=== PATIENT | male | born 1970 | race Caucasian/White ===

== ENCOUNTER 2019-06-22 10:15 | Emergency (ER) | payer MEDICARE, OTHER ==
[2019-06-22] MEDS ORDERED: ASPIRIN 81 MG TABLET, CHEWABLE PO ONE (10:30)
--- NOTE | 2019-06-22 10:33 | ER Document Report ---
ED Medical Screen (RME) - General Chief Complaint: Chest Pain Stated Complaint: CHEST PAIN Time Seen by Provider: 06/22/19 10:27 Mode of Arrival: Ambulatory Information source: Patient Notes: Patient is a 49-year-old male who is new to our local area presenting with complaints of midsternal chest pain that radiates around to the right upper quadrant. He reports the pain has been present for 3 days and is persistent and severe. He reports associated nausea, diaphoresis and chills. His daughter who is present for the interview reports that he is currently being worked up for lung cancer. She also reports he has a history of having 3 strokes in the past. Exam: Tenderness to palpation right upper quadrant. I have greeted and performed a rapid initial assessment of this patient. A comprehensive ED assessment and evaluation of the patient, analysis of test results and completion of the medical decision making process will be conducted by additional ED providers. I have specifically instructed the patient or family members with the patient to immediately return to any nursing staff should anything change in the patient's condition or with their chief complaint. This medical record was dictated with voice recognizing software. There may be grammatical, syntax errors that are unintended. TRAVEL OUTSIDE OF THE [place] IN LAST 30 DAYS: No - Related Data Allergies/Adverse Reactions: iodine Allergy (Verified 06/22/19 10:21) Physical Exam - Vital signs Vitals: Temp Pulse Resp BP Pulse Ox 98.7 F 92 20 149/91 H 98 06/22/19 10:24 06/22/19 10:24 06/22/19 10:24 06/22/19 10:24 06/22/19 10:24 Course - Vital Signs Vital signs: Temp Pulse Resp BP Pulse Ox 98.7 F 92 20 149/91 H 98 06/22/19 10:24 06/22/19 10:24 06/22/19 10:24 06/22/19 10:24 06/22/19 10:24
--- NOTE | 2019-06-22 11:35 | RADIOLOGY REPORT (SQ) ---
EXAM DESCRIPTION: CHEST 2 VIEWS COMPLETED DATE/TIME: 06/22/2019 11:21 am REASON FOR STUDY: chest pain COMPARISON: None. EXAM PARAMETERS: NUMBER OF VIEWS: two views TECHNIQUE: Digital Frontal and Lateral radiographic views of the chest acquired. RADIATION DOSE: NA LIMITATIONS: none FINDINGS: LUNGS AND PLEURA: No opacities, masses or pneumothorax. No pleural effusion. MEDIASTINUM AND HILAR STRUCTURES: No masses or contour abnormalities. HEART AND VASCULAR STRUCTURES: Heart normal size. No evidence for failure. BONES: No acute findings. HARDWARE: None in the chest. OTHER: No other significant finding. IMPRESSION: NO ACUTE RADIOGRAPHIC FINDING IN THE CHEST. TECHNICAL DOCUMENTATION: JOB ID: [id number] [employer]- All Rights Reserved Reading location - IP/workstation name: [email or web address]
[2019-06-22 11:40] LABS: ABSOLUTE BASOPHILS # (AUTO) 0.1 10^3/uL (0.0-0.2); ABSOLUTE EOSINOPHILS # (AUTO) 0.1 10^3/uL (0.0-0.6); ABSOLUTE LYMPHOCYTES (AUTO) 5.1 10^3/uL (0.5-4.7); ABSOLUTE MONOCYTES (AUTO) 0.9 10^3/uL (0.1-1.4); ABSOLUTE NEUT (AUTO) 7.3 10^3/uL (1.7-8.2); BASOPHILS % (AUTO) 0.6 % (0-2); EOSINOPHILS % (AUTO) 1.1 % (0-6); HEMOGLOBIN 11.5 g/dL (13.5-17.0); LYMPHOCYTES % (AUTO) 37.6 % (13-45); MEAN CORPUSCULAR HGB CONC 31.9 g/dL (32.0-36.0); MONOCYTES % (AUTO) 6.5 % (3-13); PLATELET COUNT 367 10^3/uL (150-450); RED BLOOD COUNT 6.02 10^6/uL (4.35-5.55); RED CELL DISTRIBUTION WIDTH 15.6 % (11.5-14.0); SEGMENTED NEUTROPHILS % (AUTO) 54.2 % (42-78); TOTAL CELLS COUNTED % (AUTO) 100 %; WHITE BLOOD COUNT 13.5 10^3/uL (4.0-10.5)
[2019-06-22 11:49] LABS: MEAN CORPUSCULAR VOLUME 60 fl (80-97)
[2019-06-22 11:52] LABS: ALBUMIN 5.1 g/dL (3.5-5.0); ALKALINE PHOSPHATASE 79 U/L (38-126); ANION GAP 13 (5-19); ASPARTATE AMINO TRANSFERASE 29 U/L (17-59); BILIRUBIN,DIRECT 0.4 mg/dL (0.0-0.4); BILIRUBIN,TOTAL 0.7 mg/dL (0.2-1.3); BLOOD UREA NITROGEN 11 mg/dL (7-20); CALCIUM 9.8 mg/dL (8.4-10.2); CARBON DIOXIDE 25 mmol/L (22-30); CHLORIDE 103 mmol/L (98-107); GLUCOSE 88 mg/dL (75-110); POTASSIUM 4.3 mmol/L (3.6-5.0); TOTAL PROTEIN 8.4 g/dL (6.3-8.2)
--- NOTE | 2019-06-22 11:59 | ER Document Report ---
ED General - General Chief Complaint: Chest Pain Stated Complaint: CHEST PAIN Time Seen by Provider: 06/22/19 10:27 Mode of Arrival: Ambulatory TRAVEL OUTSIDE OF THE [place] IN LAST 30 DAYS: No - HPI Notes: Patient is 3 days continuous sharp dull epigastric pain that radiates to his right upper quadrant. He has been having nausea but no vomiting. He has been having normal bowel movements no black or red stools. Abdominal pain is not in his lower abdomen he has no dysuria or chest pain. - Related Data Allergies/Adverse Reactions: iodine Allergy (Verified 06/22/19 10:21) Past Medical History - General Information source: Patient - Social History Smoking Status: Current Every Day Smoker Family History: Reviewed & Not Pertinent Patient has suicidal ideation: No Patient has homicidal ideation: No Review of Systems - Review of Systems Constitutional: No symptoms reported EENT: No symptoms reported Cardiovascular: No symptoms reported Respiratory: No symptoms reported Gastrointestinal: See HPI Genitourinary: No symptoms reported Male Genitourinary: No symptoms reported Musculoskeletal: No symptoms reported Skin: No symptoms reported Hematologic/Lymphatic: No symptoms reported Neurological/Psychological: No symptoms reported Physical Exam - Vital signs Vitals: Temp Pulse Resp BP Pulse Ox 98.7 F 92 20 149/91 H 98 06/22/19 10:24 06/22/19 10:24 06/22/19 10:24 06/22/19 10:24 06/22/19 10:24 - General General appearance: Appears well, Alert - HEENT Head: Normocephalic, Atraumatic Eyes: Normal Conjunctiva: Normal - Respiratory Respiratory status: No respiratory distress Chest status: Nontender Breath sounds: Normal Chest palpation: Normal - Cardiovascular Rhythm: Regular Heart sounds: Normal auscultation Murmur: No - Abdominal Inspection: Normal Distension: No distension Bowel sounds: Normal Tenderness: Other - Mild tenderness to palpation of epigastric and right upper quadrant - Neurological Neuro grossly intact: Yes Cognition: Normal Orientation: AAOx4 Course - Re-evaluation Re-evalutation: 06/22/19 12:51 Patient has normal right upper quadrant ultrasound as well as chest x-ray. His labs are within normal limits are nonsignificant with only mild leukocytosis and no fever. His symptoms been going on for over 3 days and been continuous with a negative troponin and no concerning EKG findings. We will treat at this time is gastritis as he states he has been having a sour taste in his throat. Will provide Pepcid and Maalox at this time outpatient. Strict return precautions were provided the event and develop any fevers or worsening symptoms to return to the emergency department. - Vital Signs Vital signs: Temp Pulse Resp BP Pulse Ox 97.6 F 92 15 151/97 H 100 06/22/19 13:00 06/22/19 10:24 06/22/19 13:00 06/22/19 13:00 06/22/19 13:00 - Laboratory Result Diagrams: 06/22/19 11:10 06/22/19 11:10 Laboratory results interpreted by me: 06/22/19 06/22/19 11:10 11:10 WBC 13.5 H RBC 6.02 H Hgb 11.5 L Hct 36.0 L MCV 60 L MCH 19.0 L MCHC 31.9 L RDW 15.6 H Absolute Lymphs (auto) 5.1 H Total Protein 8.4 H Albumin 5.1 H - Diagnostic Test Radiology reviewed: Reports reviewed - EKG Interpretation by Me EKG shows normal: Sinus rhythm Rate: Normal Rhythm: NSR - Normal axis, no concerning ST depressions or elevations Discharge - Discharge Clinical Impression: Upper abdominal pain Condition: Good Disposition: HOME, SELF-CARE Instructions: Abdominal Pain ([facility]), Antacid Therapy ([facility]), Antinausea Medication ([facility]) Additional Instructions: Return to the emergency department if any development of fevers or worsening symptoms. Prescriptions: Bismuth Subsalicylate [Maalox] 1 dose PO DAILY PRN #1 bottle PRN Reason: Ranitidine HCl [Zantac] 150 mg PO BID #60 tablet Ondansetron [Zofran Odt 4 mg Tablet] 1 - 2 tab PO ASDIR PRN #10 tab.rapdis PRN Reason: For Nausea/Vomiting
[2019-06-22 12:03] LABS: ANISOCYTOSIS SLIGHT; HYPOCHROMASIA 2+; OVALOCYTES SLIGHT; POIKILOCYTOSIS SLIGHT; POLYCHROMASIA 1+; TEAR DROP CELLS SLIGHT
[2019-06-22 12:04] LABS: PLATELET COMMENT ADEQUATE
--- NOTE | 2019-06-22 12:48 | RADIOLOGY REPORT (SQ) ---
EXAM DESCRIPTION: U/S ABDOMEN LIMITED W/O DOP COMPLETED DATE/TIME: 06/22/2019 12:35 pm REASON FOR STUDY: chest pain/RUQ pain/nausea COMPARISON: None. TECHNIQUE: Dynamic and static grayscale images acquired of the abdomen and recorded on PACS. Kenneyo contreras selected color Doppler and spectral images recorded. LIMITATIONS: None. FINDINGS: PANCREAS: Not visualized. LIVER: Normal size Echo texture normal. No focal masses. LIVER VASCULATURE: Normal directional flow of the main portal vein and hepatic veins. GALLBLADDER: No stones. Normal wall thickness. No pericholecystic fluid. ULTRASOUND-DETECTED SEWELL'S SIGN: Negative. INTRAHEPATIC DUCTS AND COMMON DUCT: CBD and intrahepatic ducts normal caliber. No filling defects. AORTA: No aneurysm. RIGHT KIDNEY: The right kidney measures 11.5 cm in length. Normal echogenicity. No solid or susp icious masses. No hydronephrosis. No calcifications. PERITONEAL AND RIGHT PLEURAL SPACE: No ascites or effusions. OTHER: No other significant findings. IMPRESSION: Nonvisualization of the pancreas secondary to overlying bowel gas otherwise negative rig ht upper quadrant ultrasound. TECHNICAL DOCUMENTATION: JOB ID: [id number] [employer]- All Rights Reserved Reading location - IP/workstation name: [email or web address]
[2019-06-22] MEDS ORDERED: MAG HYDROX/AL HYDROX/SIMETH SUSP 30 ML UDCUP PO ONE (12:50)
[2019-06-22] MEDS ORDERED: METOCLOPRAMIDE HCL ORAL SOLN 10 MG/10 ML UDCUP PO ONE (12:50)
[2019-06-22] MEDS ORDERED: LIDOCAINE 2% VISCOUS SOLN 20 ML UDCUP PO ONE (12:50)
[2019-06-22 13:02] VITALS: BP 151/97
--- NOTE | 2019-06-22 13:55 | EKG REPORT ---
SEVERITY:- BORDERLINE ECG - SINUS RHYTHM CONSIDER RIGHT VENTRICULAR HYPERTROPHY : Confirmed by: Marques Martinez MD 22-Jun-2019 13:55:30
[2019-06-26 16:41] LABS: PATH REVIEW PATHOLOGIST REVIEWED
== END 2019-06-22 13:29 | disposition home or self-care (01) ==
LOC: ER 10:15
DX: R10.11 Right upper quadrant pain (principal); R11.0 Nausea; F17.200 Nicotine dependence, unspecified, uncomplicated
CPT/HCPCS: 93005; 99285; 36415; 83690; 85025; 80053; 84484; 71046; 76705; 93010; A9270 ×2; J3490

== ENCOUNTER → 2019-06-27 | Outpatient (CLI) | payer MEDICARE ==
--- NOTE | 2019-06-27 15:45 | RADIOLOGY REPORT (SQ) ---
EXAM DESCRIPTION: CT CHEST WITHOUT COMPLETED DATE/TIME: 06/27/2019 3:30 pm REASON FOR STUDY: R91.8 OTHER NONSPECIFIC ABNORMAL FINDING OF LUNG FIELD R91.8 OTHER NONSPECIFIC AB NORMAL FINDING OF LUNG FIELD COMPARISON: None. TECHNIQUE: CT scan performed of the chest without intravenous contrast. Images reviewed with lung, soft tissue and bone windows. Reconstructed coronal and sagittal MPR images reviewed. All images st ored on PACS. All CT scanners at this facility use dose modulation, iterative reconstruction, and/or weight based d osing when appropriate to reduce radiation dose to as low as reasonably achievable (ALARA). [facility]: Dose Right [facility]: CareDose [facility]: Dose Right [facility]: Teradose 4D [facility]: [email or web address] RADIATION DOSE: CT Rad equipment meets quality standard of care and radiation dose reduction techniq ues were employed. CTDIvol: 12.4 mGy. DLP: 519 mGy-cm. mGy. LIMITATIONS: No technical limitations. FINDINGS: Chest x-ray dated 06/22/2019 LUNGS AND PLEURA: No masses, infiltrates, or pneumothorax. No pleural effusions or pleural calcifica tions. HILAR AND MEDIASTINAL STRUCTURES: No identified masses or abnormal nodes. No obvious aneurysm. HEART AND VASCULAR STRUCTURES: No aneurysm. No pericardial effusion. UPPER ABDOMEN: No significant findings. Limited exam. THYROID AND OTHER SOFT TISSUES: No masses. No adenopathy. BONES: No significant finding. HARDWARE: None in the chest. OTHER: No other significant findings. IMPRESSION: NO SIGNIFICANT FINDING ON NON-CONTRASTED CHEST CT. TECHNICAL DOCUMENTATION: JOB ID: [id number] Quality ID # [id number]: Final reports with documentation of one or more dose reduction techniques (e.g., Au tomated exposure control, adjustment of the mA and/or kV according to patient size, use of iterative reconstruction technique) 2010 [employer]- All Rights Reserved Reading location - IP/workstation name: [email or web address]
== END ==
LOC: RAD 14:43
PROVIDERS: ATTEND Family Medicine
DX: R91.8 Other nonspecific abnormal finding of lung field (principal)
CPT/HCPCS: 71250

== ENCOUNTER → 2019-07-28 | Emergency (ER) | payer MEDICARE ==
[~2019-07-28] MED LIST: ALTEPLASE INJ 100 MG VIAL IV ONE; ALTEPLASE INJ 100 MG VIAL ONE; MORPHINE SULFATE 10 MG/ML INJ IV ONE
--- NOTE | 2019-07-28 22:49 | ER Document Report ---
ED Neuro Symptoms/Deficit - General Chief Complaint: Chest Pain Stated Complaint: CHEST PAIN Time Seen by Provider: 07/28/19 22:45 Primary Care Provider: RUTH ANN GHOSH DO [Primary Care Provider] - Follow up as needed TRAVEL OUTSIDE OF THE [place] IN LAST 30 DAYS: No - HPI Notes: This is a 49-year-old gentleman with a history of hypertension, lung cancer who presents today with a complaint of right-sided weakness and paresthesias. Patient was last seen well about 30 minutes prior to presentation. He was on his way to go to the postop to go to [place] when he started having chest pain, speech difficulty and right-sided weakness. He denies any trauma. EMS then brought him to the emergency department. He denies any recent illness. She was given aspirin and nitroglycerin per EMS for chest pain. He also comes of generalized body aches. - Related Data Allergies/Adverse Reactions: iodine Allergy (Verified 06/22/19 10:21) Past Medical History - Social History Smoking Status: Current Every Day Smoker Frequency of alcohol use: None Drug Abuse: None Family History: Reviewed & Not Pertinent Review of Systems - Review of Systems Cardiovascular: Chest pain. denies: Palpitations, Heart racing Gastrointestinal: denies: Abdominal pain Neurological/Psychological: Weakness, Speech impairment, Numbness. denies: Headaches, Suicidal ideation -: Yes All other systems reviewed and negative Physical Exam - Vital signs Vitals: Pulse Resp BP Pulse Ox 99 20 148/96 H 95 07/28/19 22:46 07/28/19 22:46 07/28/19 22:46 07/28/19 22:46 - HEENT Head: Normocephalic, Atraumatic Eyes: Normal Pupils: PERRL - Respiratory Respiratory status: No respiratory distress Chest status: Nontender Breath sounds: Normal Chest palpation: Normal - Cardiovascular Rhythm: Regular Heart sounds: Normal auscultation Murmur: No - Abdominal Inspection: Normal Distension: No distension Bowel sounds: Normal Tenderness: Nontender Organomegaly: No organomegaly - Neurological Neuro grossly intact: Yes Cognition: Normal Orientation: AAOx4 Nigel Coma Scale Eye Opening: Spontaneous Nigel Coma Scale Verbal: Oriented [place] Coma Scale Motor: Obeys Commands Nigel Coma Scale Total: 15 Speech: Normal, Expressive aphasia Cranial nerves: Sensory deficit Motor strength normal: LUE, LLE Sensory: Normal Notes: Patient has subjective decreased sensation on the right side. He has right lower extremity weakness. He is unable to lift his right leg. Decreased strength also in the right upper extremity. NIH stroke score was 9. Course - Re-evaluation Re-evalutation: 07/28/19 22:53 Clinical picture is concerning for acute CVA. Code stroke called immediately. Call placed to [facility] for neurology consult. Awaiting callback. 07/28/19 23:22 Patient's care discussed with neurology PA at [facility], Magno Britton. TPA recommended since patient is within the TPA window. Patient accepted for transfer. Admitting attending is Dr. James Tam went and discussed risks and benefits of TPA with patient. He understands risk of bleeding. He understands benefits of potential resolution of symptoms. Patient has no contraindications to TPA at this time. TPA ordered. Patient will be transferred to [facility]. 07/28/19 23:23 EKG shows normal sinus rhythm at 99 bpm. Right ventricular hypertrophy. No acute injury pattern. 07/28/19 23:24 07/28/19 23:47 Patient is doing well. He was in the first pain. Has pain all over. No changes in neuro exam. 07/29/19 00:16 Patient reevaluated. No change in his neuro exam. He is hemodynamically stable. Transport is here. He is stable for transfer. - Vital Signs Vital signs: Temp Pulse Resp BP Pulse Ox 98.4 F 96 18 134/80 H 96 07/28/19 23:10 07/29/19 00:02 07/29/19 00:02 07/29/19 00:02 07/29/19 00:02 - Laboratory Result Diagrams: 07/28/19 22:45 07/28/19 22:45 Laboratory results interpreted by me: 07/28/19 22:45 WBC 11.3 H RBC 6.12 H Hgb 11.9 L Hct 37.5 L MCV 61 L MCH 19.5 L MCHC 31.8 L RDW 17.4 H Critical Care Note - Critical Care Note Total time excluding time spent on procedures (mins): 90 Comments: Critical care time includes time for management of acute CVA with TPA administration. Discharge - Discharge Clinical Impression: Acute CVA (cerebrovascular accident) Condition: Stable Disposition: Tertiary-Other Referrals: RUTH ANN GHOSH, [Primary Care Provider] - Follow up as needed ED NIH Stroke Scale - NIH Stroke Scale *: 1. NIH scale should be completed with appropriate accompanying assessment tools. *: 2. The NIH should reflect what the patient is capable of doing and should not be coached by the clinician. 1a. Level of Consciousness: 0=Alert;keenly responsive -: 1=Drowsy -: 2=Obtunded -: 3=Coma/unresponsive or reflex to noxious stimuli. 1a. Responses: 0 1b. Orientation Questions: a. What month is it? -: b. How old are you? -: 0=Answers both questions correctly. -: 1=Answers one question correctly or patient is intubated or has orotracheal trauma. -: 2=Answers neither question correctly. 1b. Responses: 1 1c. Response to commands: a. Open and close eyes? -: b. Mobile Sales Assistant and release hand? -: Credit is given despite weakness. Demonstration of task is permitted. Substitute command if hands cannot be used. -: 0=Performs both tasks correctly -: 1=Performs one task correctly -: 2=Performs neither task correctly 1c. Responses: 0 2. Gaze: Establish eye contact and instruct patient to "Follow my finger" -: 0=Normal -: 1=Partial gaze palsy. Gaze is abnormal in one or both eyes, but where forced deviation or total gaze paresis is not present. -: 2=Forced deviation or total gaze paresis. 2. Responses: 0 3. Visual Last: Sees fingers in all four quadrants. -: 0=No visual loss. -: 1=Partial hemianopsia. -: 2=Complete hemianopsia. -: 3=Bilateral hemianopsia (including Cortical blindness) 3. Responses: 0 4. Facial Movement: Instruct patient to: -: a. Show me your teeth -: b. Raise your eyebrows -: c. Close your eyes -: d. Smile -: 0=Normal symmetrical movement -: 1=Minor paralysis (flattened nasolabial fold, asymmetry on smiling). -: 2=Partial paralysis (total or near total paralysis of lower face). -: 3=Complete paralysis of upper and lower face 4. Responses: 1 5. Motor functions (left arm): Alternate sides and extend each arm with palms down (90 degrees if sitting or 45 degrees for supine). -: 0=No drift;limb holds for full 10 seconds. -: 1=Drift; limb holds but drifts down before full 10 seconds, but does not hit bed. -: 2=Some effort against gravity; limb cannot get to or maintain position. -: 3=No effort against gravity; limb falls. -: 4=No movement. -: UN=Amputation, joint fusion, explain in comments. 5. Responses (left arm): 0 5. Motor Functions (right arm): Alternate sides and extend each arm with palms down (90 degrees if sitting or 45 degrees for supine). -: 0=No drift;limb holds for full 10 seconds. -: 1=Drift; limb holds but drifts down before full 10 seconds, but does not hit bed. -: 2=Some effort against gravity; limb cannot get to or maintain position. -: 3=No effort against gravity; limb falls. -: 4=No movement. -: UN=Amputation, joint fusion, explain in comments. 5. Responses (right arm): 2 6. Motor Functions (left leg): With patient lying supine, alternate sides and extend each leg (30 degrees always while supine). -: 0=No drift, leg holds position for full 5 seconds -: 1=Drift; leg falls before full 5 seconds but does not hit bed. -: 2=Some effort against gravity, leg falls to bed but some effort against gravity. -: 3=No effort against gravity, leg falls to bed immediately. -: 4=No movement. -: UN=Amputation, joint fusion; explain in comments. 6. Responses (left leg): 0 6. Motor Functions (right leg): With patient lying supine, alternate sides and extend each leg (30 degrees always while supine). -: 0=No drift, leg holds position for full 5 seconds -: 1=Drift; leg falls before full 5 seconds but does not hit bed. -: 2=Some effort against gravity, leg falls to bed but some effort against gravity. -: 3=No effort against gravity, leg falls to bed immediately. -: 4=No movement. -: UN=Amputation, joint fusion; explain in comments. 6. Responses (right leg): 3 7. Limb Ataxia: With eyes open instruct patient to: -: a. "Touch your finger to your nose". -: b. "Touch your heel to your victoria" -: 0=Absent -: 1=Present in one limb. -: 2=Present in two limbs. -: UN=Amputation or joint fusion; explain in comments. 7. Responses: 0 8. Sensory: Test sensation using pinprick or noxious stimuli. Test as many body parts as possible. -: 0=Normal;no sensory loss -: 1=Mile to moderate sensory loss (patient feels pin prick but is less sharp on affected side). -: 2=Severe or total sensory loss. 8. Responses: 1 9. Best Language: Instruct patient to: -: a. "Describe what you see in this picture." -: b. "Name the items in this picture." -: c. "Read these sentences." -: 0=No aphasia, normal -: 1=Mild to moderate aphasia. -: 2=Severe aphasia -: 3=Mute, global aphasia, no usable speech or auditory comprehension. 9. Responses: 1 10. Articulation, Dysarthia: Instruct patient to: -: "Read these words" or "Repeat these words" -: 0=Normal -: 1=Mild to moderate; patient may slur some words but can be understood without difficulty. -: 2=Severe; patients speech so slurred as to be unintelligible in the absence of dysphasia. -: UN=Intubated or other physical barrier, explain in comments. 10. Responses: 0 11. Extinction or inattention: 0=No abnormality -: 1= Visual, tactile, auditory, spatial, or personal inattention or extinction to bilateral simulation in one or the sensory modalities. -: 2=Profound donny-inattention or donny-inattention to more than one modality; does not recognize own hand. 11. Responses: 0 Total Score: 9 ED Alteplase Inc/Exc Criteria - Inclusion Criteria: 1: Patient presented to ED within 3 hours of acute ischemic stroke symptom onset? -: Yes 2: Did baseline CT exclude intracranial hemorrhage and/or other risk factors? -: Yes 3: Is the age of the patient 18 years of age or greater? -: Yes : If any of the above questions are answered "NO" then stop, patient is not a candidate for Alteplase, : If all of the above questions are answered "YES" then continue with Exclusion Criteria. - Exclusion Criteria: 1: Is there evidence of intracranial hemorrhage on baseline CT? -: No 2: Is there suspicion of subarachnoid hemorrhage (even if CT negative)? -: No 3: Is there a history of serious head trauma, recent previous stroke or AL within 3 months? -: No 4: Does the patient have a clinical presentation consistent with AL or post-AL pericarditis? -: No 5: Is there history of intracranial hemorrhage? -: No 6: On repeated measurement is Systolic BP greater than 185mmHg or Diastolic BP greater that 110 mmHg and is aggressive treatment needed to reduce blood pressure to these limits (e.g. constant infusion of an anti-hypertensive)? -: No 7: Did the patient awake with stroke symptoms? -: No 8: Has the patient had a lumbar puncture or an arterial puncture at a non- compressile site within 7 days? -: No 9: With in the last 14 days did the patient have surgery or major trauma? -: No 10: Is the patient or less than 2 weeks? -: No 11: Was there any active bleeding or acute trauma? -: No 12: Does the patient have intracranial neoplasm, arteriovenous malformation or aneurysm? -: No 13: Does the patient have abnormal glucose (less than 50 or greater than 400mg/dl)? Record glucose in Comment. -: No 14: Patient has rapidly improving symptoms at the time Alteplase is to be Administered. -: No 15: Does the patient have any risks for bleeding, including but not limited to: a.: Current use of Coumadin with PT greater than 15 seconds or INR greater than 1.7. b.: Current use of Pradaxa (Dabigatran). c.: Heparin administereed within the past 48 hours and PTT elevated. d.: Platelet count less than 100,000/mm. e.: Major surgery or serious trauma within 14 days. f.: Gastrointestinal or gynecological urinary bleeding within 14 days. g.: Myocardial Infarction (AL) within 3 months. -: No : If the answer to any of the above questions is "YES" then stop, the patient is not a candidate for Alteplase. : If the answer to all of the above questions is "NO" then the patient may be eligible for the Administration of Alteplase. : If the patient is noted to have seizure activity at onset of Stroke symptoms; Consult Neurologist for further evaluation. - The patient is: -: Included and is eligible to receive Alteplase. *Initiate bed placement at higher level of care* --: Yes Reviewed risks & benefits of thrombolytic therapy: I have reviewed the risks and benefits of thrombolytic therapy with the patient and/or his/her family. Yes -: Excluded and not eligible to receive Alteplase for the above exclusions. -: Excluded and not eligible to receive Alteplase for other reasons (specify in comments): - Diagnosis of TIA: -: Patient presented with transient symptoms that are now resolved and no other neurologic findings are currently present. List symptoms in comments. -: Patient is NOT a candidate for tPA. -: ____(put name in comment) has been consulted for admission and continued evaluation of risk factor assessment.
[2019-07-28 22:59] LABS: ABSOLUTE BASOPHILS # (AUTO) 0.1 10^3/uL (0.0-0.2); ABSOLUTE EOSINOPHILS # (AUTO) 0.1 10^3/uL (0.0-0.6); ABSOLUTE LYMPHOCYTES (AUTO) 3.7 10^3/uL (0.5-4.7); ABSOLUTE MONOCYTES (AUTO) 0.6 10^3/uL (0.1-1.4); ABSOLUTE NEUT (AUTO) 6.8 10^3/uL (1.7-8.2); BASOPHILS % (AUTO) 0.9 % (0-2); EOSINOPHILS % (AUTO) 0.9 % (0-6); HEMATOCRIT 37.5 % (37.9-51.0); HEMOGLOBIN 11.9 g/dL (13.5-17.0); LYMPHOCYTES % (AUTO) 32.9 % (13-45); MEAN CORPUSCULAR HEMOGLOBIN 19.5 pg (27.0-33.4); MEAN CORPUSCULAR HGB CONC 31.8 g/dL (32.0-36.0); MONOCYTES % (AUTO) 5.1 % (3-13); PLATELET COUNT 347 10^3/uL (150-450); RED BLOOD COUNT 6.12 10^6/uL (4.35-5.55); RED CELL DISTRIBUTION WIDTH 17.4 % (11.5-14.0); SEGMENTED NEUTROPHILS % (AUTO) 60.2 % (42-78); TOTAL CELLS COUNTED % (AUTO) 100 %; WHITE BLOOD COUNT 11.3 10^3/uL (4.0-10.5)
[2019-07-28 23:04] LABS: INTERNATIONAL RATION (INR) 1.04
[2019-07-28 23:05] LABS: PARTIAL THROMBOPLASTIN TIME 26.5 SEC (23.5-35.8)
--- NOTE | 2019-07-28 23:05 | RADIOLOGY REPORT (SQ) ---
EXAM DESCRIPTION: CT HEAD WITHOUT IV CONTRAST COMPLETED DATE/TME: 07/28/2019 22:46 CLINICAL HISTORY: 49 years, Male, cva COMPARISON: None. TECHNIQUE: Images stored on PACS. All CT scanners at this facility use dose modulation, iterative reconstruction, and/or weight based dosing when appropriate to reduce radiation dose to as low as reasonably achievable (ALARA). EXAM DESCRIPTION: CLINICAL HISTORY: cva COMPARISON: None Available TECHNIQUE: Contiguous axial CT images of the head were obtained. Coronal and sagittal reconstructions were created from the axial data. This exam was performed according to our departmental dose-optimization program, which includes automated exposure control, adjustment of the mA and/or kV according to patient size and/or use of iterative reconstruction technique. FINDINGS: There is no evidence of acute mass, mass effect, midline shift or hemorrhage. The ventricles and extra-axial CSF spaces are unremarkable. The brain parenchyma appears normal for the patient's age. No acute abnormalities of the bones is seen. IMPRESSION: No acute intracranial abnormality.
[2019-07-28 23:08] LABS: PROTHROMBIN TIME 13.6 SEC (11.4-15.4)
[2019-07-28 23:18] LABS: ANISOCYTOSIS 1+; HYPOCHROMASIA SLIGHT; TARGET CELLS SLIGHT
[2019-07-28 23:19] LABS: ALBUMIN 4.6 g/dL (3.5-5.0); ALKALINE PHOSPHATASE 85 U/L (38-126); ANION GAP 12 (5-19); ASPARTATE AMINO TRANSFERASE 27 U/L (17-59); BILIRUBIN,DIRECT 0.1 mg/dL (0.0-0.4); BILIRUBIN,TOTAL 0.4 mg/dL (0.2-1.3); BLOOD UREA NITROGEN 9 mg/dL (7-20); CALCIUM 10.1 mg/dL (8.4-10.2); CARBON DIOXIDE 27 mmol/L (22-30); CHLORIDE 102 mmol/L (98-107); CREATINE KINASE 66 U/L (55-170); GLUCOSE 95 mg/dL (75-110); PLATELET COMMENT ADEQUATE; POTASSIUM 3.9 mmol/L (3.6-5.0); TOTAL PROTEIN 7.8 g/dL (6.3-8.2)
[2019-07-28 23:21] LABS: MEAN CORPUSCULAR VOLUME 61 fl (80-97)
[2019-07-28 23:43] LABS: CREATINE KINASE MB < 0.22 ng/mL (<4.55); TROPONIN I < 0.012 ng/mL
--- NOTE | 2019-07-28 23:47 | RADIOLOGY REPORT (SQ) ---
EXAM DESCRIPTION: XR CHEST 1 VIEW COMPLETED DATE/TME: 07/28/2019 22:46 CLINICAL HISTORY: 49 years, Male, cva COMPARISON: 06/22/2019 chest NUMBER OF VIEWS: 1 TECHNIQUE: Portable chest LIMITATIONS: None. FINDINGS: The heart size is normal. Osteopenia. Lungs clear. No pneumothorax IMPRESSION: No acute cardiopulmonary process copyright 2010 [employer]- All Rights Reserved
[2019-07-29 00:26] VITALS: BP 133/93
--- NOTE | 2019-07-29 08:52 | EKG REPORT ---
SEVERITY:- ABNORMAL ECG - SINUS TACHYCARDIA PROBABLE RIGHT VENTRICULAR HYPERTROPHY : Confirmed by: Fatmata Lopez MD 29-Jul-2019 08:51:24
[2019-07-30 12:53] LABS: PATH REVIEW PATHOLOGIST REVIEWED
== END | disposition short-term general hospital (02) ==
LOC: ER 22:29
DX: I63.9 Cerebral infarction, unspecified (principal); G81.91 Hemiplegia, unspecified affecting right dominant side; R47.9 Unspecified speech disturbances; R20.0 Anesthesia of skin; R29.709 NIHSS score 9; I11.9 Hypertensive heart disease without heart failure; R07.9 Chest pain, unspecified; F17.200 Nicotine dependence, unspecified, uncomplicated; Z85.118 Personal history of other malignant neoplasm of bronchus and lung
CPT/HCPCS: 93005; 99291; 99292; 96374; 96375; 36415; 82553; 82962; 82550; 85025; 85610; 85730; 80053; 84484; 71045; 70450; 93010; J2270; J2997

== ENCOUNTER 2020-03-05 23:22 | Emergency (ER) | payer MEDICARE, MEDICAID ==
[2020-03-06] MEDS ORDERED: LORAZEPAM INJ 2 MG/1 ML VIAL IV ONE (00:15)
[2020-03-06] MEDS ORDERED: LEVETIRACETAM 1000 MG/NACL-ISO 1,000 MG/100 ML RTUPB IV ONE (00:19)
--- NOTE | 2020-03-06 00:19 | ER Document Report ---
ED Dizziness/Weakness - General Chief Complaint: General Weakness Stated Complaint: WEAKNESS Time Seen by Provider: 03/05/20 23:32 Primary Care Provider: RUTH ANN GHOSH DO [Primary Care Provider] - Follow up as needed Mode of Arrival: Medic Information source: Patient, Emergency Med Personnel Notes: Patient is a 42-year-old male presenting to the emergency department today with multiple complaints. Patient initially told EMS and the nursing staff that he has had generalized weakness for the last few days as well as shortness of breath that started this afternoon and chest pain that started tonight around 10 PM. At the time of my initial evaluation patient also reports weakness specifically to his left side. He states this is new. He states he is not sure how long this started he said it might be a few hours or it could be a day or 2. He reports that he had a CVA in the past, about 7 months ago. He states at that time he was seen here and given TPA. He states that he has right-sided residual weakness from this. At the time of my evaluation he is alert, oriented, answering all questions appropriately. He is asking for pain medication for his chronic back pain that he states has been going on since 2006. He does have a low-grade fever, he denies any recent travel, denies any nausea, vomiting or diarrhea. TRAVEL OUTSIDE OF THE [place] IN LAST 30 DAYS: No - Related Data Allergies/Adverse Reactions: iodine Allergy (Verified 06/22/19 10:21) Past Medical History - General Information source: Patient - Social History Smoking Status: Unknown if Ever Smoked Frequency of alcohol use: None Drug Abuse: None Family History: Reviewed & Not Pertinent Patient has homicidal ideation: No Neurological Medical History: Reports: Hx Cerebrovascular Accident - 2019, Hx Seizures - Pt reports hx but not taking any medications Endocrine Medical History: Reports: Hx Diabetes Mellitus Type 2 - Pt reports resolved Review of Systems - Review of Systems Constitutional: Fever, Weakness Cardiovascular: Chest pain Respiratory: Short of breath -: Yes All other systems reviewed and negative Physical Exam - Vital signs Vitals: Temp Resp BP Pulse Ox 100.4 F 11 L 140/83 H 98 03/05/20 23:23 03/05/20 23:23 03/05/20 23:23 03/05/20 23:23 - Notes Notes: PHYSICAL EXAMINATION: GENERAL: Well-appearing, well-nourished and in no acute distress. HEAD: Atraumatic, normocephalic. EYES: Pupils equal round and reactive to light, extraocular movements intact, sclera anicteric, conjunctiva are normal. ENT: Nares patent, oropharynx clear without exudates. Moist mucous membranes. NECK: Normal range of motion, supple without lymphadenopathy LUNGS: Breath sounds clear to auscultation bilaterally and equal. No wheezes rales or rhonchi. HEART: Regular rate and rhythm without murmurs ABDOMEN: Soft, nontender, nondistended abdomen. No guarding, no rebound. No ma sses appreciated. Musculoskeletal: Normal range of motion, no pitting or edema. No cyanosis. NEUROLOGICAL: Decreased sensation to left upper and lower extremity, flaccid left upper and lower extremity. Strong radial pulse, strong dorsalis pedis pulse. Cap refill less than 3-second to upper and lower extremity. No facial droop, no slurred speech. PSYCH: Normal mood, normal affect. SKIN: Warm, Dry, normal turgor, no rashes or lesions noted. Course - Re-evaluation Re-evalutation: 03/06/20 00:20 Patient was having fluttering of his eyes and twitching of his face and was not responding to verbal commands. I did bring my attending physician to the bedside to evaluate him. Heart rate, pulse ox and respiratory rate remained normal throughout event. 03/06/20 00:30 Patient is now awake, alert, reports a history of seizures, states not taking any medication. 03/06/20 02:[address] was negative. Case discussed again with Dr. Brewster, he has reevaluated patient multiple times. He recommends getting a CTA of the head and neck to evaluate for large vessel occlusion. Patient updated on plan of care. He is alert, oriented and asking what the plan is. He is asking for pain medication for his low back pain and left leg pain. He reported to Dr. Brewster that he fell in the shower today and has been having pain to the left side since then. 03/06/20 03:09 Patient has iodine listed as an allergy. Patient initially told the nursing staff that he has no allergy to iodine and cannot tolerate IV contrast without difficulty. The generator technician did a review of patient's chart history and apparently he has been here on a previous visit in which he stated that he had "his heart stop" while receiving IV contrast. Patient now admits this happend 5-7 years ago at a hospital in [place]. Will cancel this order. Call placed to [facility] to speak with neurology. 03/06/20 03:25 Spoke with Shannon castaneda for neuology. She will bring patient down for stroke work-up. She would like the hospitalist to accept. Patient accepted by Boston Guevara MD at [facility] for stroke work up. 03/06/20 05:02 I was called to the patient's room per the patient request. Patient is now sitting up in the stretcher waving his arms around stating that he now has complete feeling in both of his arms and legs. Patient reports that he is not going to [facility] and wants to go home. Given patient's complex presentation of symptoms patient will be signing out AGAINST MEDICAL ADVICE at this time. He was pending transfer to [facility] for a possible stroke work-up. He states that his father is coming to pick him up. - Vital Signs Vital signs: Temp Pulse Resp BP Pulse Ox 98.8 F 75 16 137/85 H 99 03/06/20 02:09 03/06/20 00:03 03/06/20 05:01 03/06/20 05:00 03/06/20 05:01 - Laboratory Result Diagrams: 03/06/20 00:21 03/06/20 00:21 Laboratory results interpreted by me: 03/06/20 03/06/20 00:21 00:21 WBC 14.5 H RBC 6.37 H Hgb 12.9 L MCV 61 L MCH 20.3 L RDW 15.4 H Absolute Neuts (auto) 10.1 H Potassium 3.5 L Total Protein 8.4 H - Diagnostic Test Radiology reviewed: Image reviewed, Reports reviewed - EKG Interpretation by Me EKG shows normal: Sinus rhythm Rate: Normal Rhythm: NSR When compared to previous EKG there are: No significant change Discharge - Discharge Clinical Impression: Left-sided weakness Condition: Fair Disposition: AGAINST MEDICAL ADVICE Additional Instructions: You have chosen to leave the hospital AGAINST MEDICAL ADVICE. We have recommended transfer to [facility] for evaluation of possible stroke. You have stated that all of your symptoms have resolved and you wish to leave. Please understand that you are leaving against our advice. Please contact your primary care provider at your earliest convenience to discuss today's situation as well as to get back on all of your medications including your seizure medication. Please also follow-up with neurology as was recommended to you by [facility] when you had your last stroke. Return to the emergency department with any additional concerns. Referrals: RUTH ANN GHOSH, DO [Primary Care Provider] - Follow up as needed
[2020-03-06 00:31] LABS: ABSOLUTE BASOPHILS # (AUTO) 0.1 10^3/uL (0.0-0.2); ABSOLUTE LYMPHOCYTES (AUTO) 3.5 10^3/uL (0.5-4.7); ABSOLUTE MONOCYTES (AUTO) 0.8 10^3/uL (0.1-1.4); ABSOLUTE NEUT (AUTO) 10.1 10^3/uL (1.7-8.2); BASOPHILS % (AUTO) 0.6 % (0-2); EOSINOPHILS % (AUTO) 0.2 % (0-6); HEMATOCRIT 38.6 % (37.9-51.0); HEMOGLOBIN 12.9 g/dL (13.5-17.0); LYMPHOCYTES % (AUTO) 24.4 % (13-45); MEAN CORPUSCULAR HEMOGLOBIN 20.3 pg (27.0-33.4); MEAN CORPUSCULAR HGB CONC 33.4 g/dL (32.0-36.0); MONOCYTES % (AUTO) 5.4 % (3-13); PLATELET COUNT 343 10^3/uL (150-450); RED BLOOD COUNT 6.37 10^6/uL (4.35-5.55); RED CELL DISTRIBUTION WIDTH 15.4 % (11.5-14.0); SEGMENTED NEUTROPHILS % (AUTO) 69.4 % (42-78); TOTAL CELLS COUNTED % (AUTO) 100 %; WHITE BLOOD COUNT 14.5 10^3/uL (4.0-10.5)
[2020-03-06 00:36] LABS: MEAN CORPUSCULAR VOLUME 61 fl (80-97)
[2020-03-06 00:37] LABS: INTERNATIONAL RATION (INR) 1.13; PROTHROMBIN TIME 14.6 SEC (11.4-15.4)
[2020-03-06 00:51] LABS: ANISOCYTOSIS SLIGHT; HYPOCHROMASIA SLIGHT; PLATELET COMMENT ADEQUATE
[2020-03-06 00:53] LABS: ALBUMIN 4.9 g/dL (3.5-5.0); ALKALINE PHOSPHATASE 108 U/L (38-126); ANION GAP 10 (5-19); ASPARTATE AMINO TRANSFERASE 39 U/L (17-59); BILIRUBIN,DIRECT 0.1 mg/dL (0.0-0.4); BILIRUBIN,TOTAL 1.3 mg/dL (0.2-1.3); BLOOD UREA NITROGEN 14 mg/dL (7-20); CALCIUM 9.5 mg/dL (8.4-10.2); CARBON DIOXIDE 25 mmol/L (22-30); CHLORIDE 102 mmol/L (98-107); CREATINE KINASE 110 U/L (55-170); GLUCOSE 106 mg/dL (75-110); POLYCHROMASIA SLIGHT; POTASSIUM 3.5 mmol/L (3.6-5.0); TOTAL PROTEIN 8.4 g/dL (6.3-8.2)
[2020-03-06 00:54] LABS: OVALOCYTES SLIGHT
[2020-03-06 01:01] LABS: CREATINE KINASE MB 1.13 ng/mL (<4.55)
[2020-03-06 01:05] LABS: TROPONIN I < 0.012 ng/mL
--- NOTE | 2020-03-06 01:29 | RADIOLOGY REPORT (SQ) ---
CLINICAL HISTORY: stroke alert COMPARISON: 07/28/2019. TECHNIQUE: CT HEAD WITHOUT IV CONTRAST on 03/06/2020 12:02 AM CDT This exam was performed according to our departmental dose-optimization program, which includes automated exposure control, adjustment of the mA and/or kV according to patient size and/or use of iterative reconstruction technique. FINDINGS: There is no acute hemorrhage, mass effect or midline shift. Jones-white differentiation is preserved. There is no hydrocephalus. There is no significant volume loss for age. The calvarium is intact. Orbits and globes are unremarkable. The paranasal sinuses are clear. Mastoid air cells are clear. IMPRESSION: No acute intracranial findings.
--- NOTE | 2020-03-06 01:29 | RADIOLOGY REPORT (SQ) ---
CLINICAL HISTORY: chest pain/sob COMPARISON: 07/28/2019. TECHNIQUE: XR CHEST 1 VIEW 03/05/2020 11:44 PM CDT FINDINGS: Cardiac silhouette is normal in size. Lungs are clear without consolidation, atelectasis, mass or edema. There is no pleural effusion. There is no pneumothorax. There are no acute osseous findings. IMPRESSION: Clear lungs.
[2020-03-06] MEDS ORDERED: ACETAMINOPHEN 1,000 MG/100 ML RTUPB IV ONE (03:00)
--- NOTE | 2020-03-06 03:19 | ER Document Report ---
ED NIH Stroke Scale - NIH Stroke Scale When completed:: Protocol *: 1. NIH scale should be completed with appropriate accompanying assessment tools. *: 2. The NIH should reflect what the patient is capable of doing and should not be coached by the clinician. 1a. Level of Consciousness: 0=Alert;keenly responsive -: 1=Drowsy -: 2=Obtunded -: 3=Coma/unresponsive or reflex to noxious stimuli. 1a. Responses: 0 1b. Orientation Questions: a. What month is it? -: b. How old are you? -: 0=Answers both questions correctly. -: 1=Answers one question correctly or patient is intubated or has orotracheal trauma. -: 2=Answers neither question correctly. 1b. Responses: 0 1c. Response to commands: a. Open and close eyes? -: b. Director Of State and release hand? -: Credit is given despite weakness. Demonstration of task is permitted. Substitute command if hands cannot be used. -: 0=Performs both tasks correctly -: 1=Performs one task correctly -: 2=Performs neither task correctly 1c. Responses: 0 2. Gaze: Establish eye contact and instruct patient to "Follow my finger" -: 0=Normal -: 1=Partial gaze palsy. Gaze is abnormal in one or both eyes, but where forced deviation or total gaze paresis is not present. -: 2=Forced deviation or total gaze paresis. 2. Responses: 0 3. Visual Last: Sees fingers in all four quadrants. -: 0=No visual loss. -: 1=Partial hemianopsia. -: 2=Complete hemianopsia. -: 3=Bilateral hemianopsia (including Cortical blindness) 3. Responses: 0 4. Facial Movement: Instruct patient to: -: a. Show me your teeth -: b. Raise your eyebrows -: c. Close your eyes -: d. Smile -: 0=Normal symmetrical movement -: 1=Minor paralysis (flattened nasolabial fold, asymmetry on smiling). -: 2=Partial paralysis (total or near total paralysis of lower face). -: 3=Complete paralysis of upper and lower face 4. Responses: 0 5. Motor functions (left arm): Alternate sides and extend each arm with palms down (90 degrees if sitting or 45 degrees for supine). -: 0=No drift;limb holds for full 10 seconds. -: 1=Drift; limb holds but drifts down before full 10 seconds, but does not hit bed. -: 2=Some effort against gravity; limb cannot get to or maintain position. -: 3=No effort against gravity; limb falls. -: 4=No movement. -: UN=Amputation, joint fusion, explain in comments. 5. Responses (left arm): 4 5. Motor Functions (right arm): Alternate sides and extend each arm with palms down (90 degrees if sitting or 45 degrees for supine). -: 0=No drift;limb holds for full 10 seconds. -: 1=Drift; limb holds but drifts down before full 10 seconds, but does not hit bed. -: 2=Some effort against gravity; limb cannot get to or maintain position. -: 3=No effort against gravity; limb falls. -: 4=No movement. -: UN=Amputation, joint fusion, explain in comments. 5. Responses (right arm): 0 6. Motor Functions (left leg): With patient lying supine, alternate sides and extend each leg (30 degrees always while supine). -: 0=No drift, leg holds position for full 5 seconds -: 1=Drift; leg falls before full 5 seconds but does not hit bed. -: 2=Some effort against gravity, leg falls to bed but some effort against gravity. -: 3=No effort against gravity, leg falls to bed immediately. -: 4=No movement. -: UN=Amputation, joint fusion; explain in comments. 6. Responses (left leg): 4 6. Motor Functions (right leg): With patient lying supine, alternate sides and extend each leg (30 degrees always while supine). -: 0=No drift, leg holds position for full 5 seconds -: 1=Drift; leg falls before full 5 seconds but does not hit bed. -: 2=Some effort against gravity, leg falls to bed but some effort against gravity. -: 3=No effort against gravity, leg falls to bed immediately. -: 4=No movement. -: UN=Amputation, joint fusion; explain in comments. 6. Responses (right leg): 0 7. Limb Ataxia: With eyes open instruct patient to: -: a. "Touch your finger to your nose". -: b. "Touch your heel to your victoria" -: 0=Absent -: 1=Present in one limb. -: 2=Present in two limbs. -: UN=Amputation or joint fusion; explain in comments. 7. Responses: 2 8. Sensory: Test sensation using pinprick or noxious stimuli. Test as many body parts as possible. -: 0=Normal;no sensory loss -: 1=Mile to moderate sensory loss (patient feels pin prick but is less sharp on affected side). -: 2=Severe or total sensory loss. 8. Responses: 1 9. Best Language: Instruct patient to: -: a. "Describe what you see in this picture." -: b. "Name the items in this picture." -: c. "Read these sentences." -: 0=No aphasia, normal -: 1=Mild to moderate aphasia. -: 2=Severe aphasia -: 3=Mute, global aphasia, no usable speech or auditory comprehension. 9. Responses: 0 10. Articulation, Dysarthia: Instruct patient to: -: "Read these words" or "Repeat these words" -: 0=Normal -: 1=Mild to moderate; patient may slur some words but can be understood without difficulty. -: 2=Severe; patients speech so slurred as to be unintelligible in the absence of dysphasia. -: UN=Intubated or other physical barrier, explain in comments. 10. Responses: 0 11. Extinction or inattention: 0=No abnormality -: 1= Visual, tactile, auditory, spatial, or personal inattention or extinction to bilateral simulation in one or the sensory modalities. -: 2=Profound donny-inattention or donny-inattention to more than one modality; does not recognize own hand. Total Score: 11
[2020-03-06 06:41] VITALS: BP 131/87
[2020-03-06 13:31] LABS: PATH REVIEW PATHOLOGIST REVIEWED
--- NOTE | 2020-03-06 23:03 | EKG REPORT ---
SEVERITY:- NORMAL ECG - SINUS RHYTHM : Confirmed by: Jorje Hartley 06-Mar-2020 23:01:40
== END 2020-03-06 06:42 | disposition left against medical advice (07) ==
LOC: ER 23:22
DX: R53.1 Weakness (principal); R06.02 Shortness of breath; R07.9 Chest pain, unspecified; R25.3 Fasciculation; I69.351 Hemiplegia and hemiparesis following cerebral infarction affecting right dominant side; M54.5 Low back pain; M79.605 Pain in left leg; W18.2XXA Fall in (into) shower or empty bathtub, initial encounter; G89.29 Other chronic pain; R50.9 Fever, unspecified; R20.8 Other disturbances of skin sensation; Z53.29 Procedure and treatment not carried out because of patient's decision for other reasons
CPT/HCPCS: 93005; 99285; 96375; 96365; 36415; 82553; 82962; 82550; 85025; 85610; 85730; 80053; 84484; 71045; 70450; 93010; J2060; J1953; J0131

== ENCOUNTER 2020-03-23 18:22 | Emergency (ER) | payer MEDICARE, MEDICAID ==
[2020-03-23 20:15] LABS: ABSOLUTE BASOPHILS # (AUTO) 0.1 10^3/uL (0.0-0.2); ABSOLUTE EOSINOPHILS # (AUTO) 0.1 10^3/uL (0.0-0.6); ABSOLUTE LYMPHOCYTES (AUTO) 3.7 10^3/uL (0.5-4.7); ABSOLUTE MONOCYTES (AUTO) 0.6 10^3/uL (0.1-1.4); ABSOLUTE NEUT (AUTO) 6.9 10^3/uL (1.7-8.2); BASOPHILS % (AUTO) 1.1 % (0-2); EOSINOPHILS % (AUTO) 0.8 % (0-6); HEMATOCRIT 36.3 % (37.9-51.0); LYMPHOCYTES % (AUTO) 32.4 % (13-45); MEAN CORPUSCULAR HEMOGLOBIN 20.5 pg (27.0-33.4); MONOCYTES % (AUTO) 5.6 % (3-13); PLATELET COUNT 341 10^3/uL (150-450); RED BLOOD COUNT 5.83 10^6/uL (4.35-5.55); RED CELL DISTRIBUTION WIDTH 15.8 % (11.5-14.0); SEGMENTED NEUTROPHILS % (AUTO) 60.1 % (42-78); TOTAL CELLS COUNTED % (AUTO) 100 %; WHITE BLOOD COUNT 11.6 10^3/uL (4.0-10.5)
[2020-03-23 20:19] LABS: MEAN CORPUSCULAR VOLUME 62 fl (80-97)
[2020-03-23 20:23] LABS: ALBUMIN 4.8 g/dL (3.5-5.0); ALKALINE PHOSPHATASE 85 U/L (38-126); ANION GAP 10 (5-19); ASPARTATE AMINO TRANSFERASE 29 U/L (17-59); BILIRUBIN,TOTAL 0.7 mg/dL (0.2-1.3); BLOOD UREA NITROGEN 5 mg/dL (7-20); CALCIUM 9.9 mg/dL (8.4-10.2); CARBON DIOXIDE 30 mmol/L (22-30); CHLORIDE 99 mmol/L (98-107); GLUCOSE 102 mg/dL (75-110); POTASSIUM 4.1 mmol/L (3.6-5.0)
[2020-03-23 20:25] LABS: ALCOHOL < 10 mg/dL (NONE DETECTED)
[2020-03-23] MEDS ORDERED: LORAZEPAM INJ 2 MG/1 ML VIAL IV ONE (20:36)
[2020-03-23] MEDS ORDERED: MORPHINE SULFATE 10 MG/ML INJ IV ONE (20:40)
[2020-03-23 20:49] LABS: ANISOCYTOSIS SLIGHT; HYPOCHROMASIA 1+; OVALOCYTES SLIGHT; PLATELET COMMENT ADEQUATE; POLYCHROMASIA SLIGHT
--- NOTE | 2020-03-23 21:17 | EKG REPORT ---
SEVERITY:- NORMAL ECG - SINUS RHYTHM : Confirmed by: Marques Martinez MD 23-Mar-2020 21:17:32
--- NOTE | 2020-03-23 21:35 | RADIOLOGY REPORT (SQ) ---
EXAM DESCRIPTION: CT HEAD WITHOUT IV CONTRAST COMPLETED DATE/TME: 03/23/2020 20:37 CLINICAL HISTORY: 50 years, Male, weakness EXAM DESCRIPTION: CLINICAL HISTORY: weakness COMPARISON: None Available TECHNIQUE: Contiguous axial CT images of the head were obtained. Coronal and sagittal reconstructions were created from the axial data. This exam was performed according to our departmental dose-optimization program, which includes automated exposure control, adjustment of the mA and/or kV according to patient size and/or use of iterative reconstruction technique. FINDINGS: There is no evidence of acute mass, mass effect, midline shift or hemorrhage. The ventricles and extra-axial CSF spaces are unremarkable. The brain parenchyma appears normal for the patient's age. No acute abnormalities of the bones is seen. IMPRESSION: No acute intracranial abnormality.
--- NOTE | 2020-03-23 23:26 | ER Document Report ---
Entered by JUAN LUIS PETERSON SCRIBE 03/23/202024 Acting as scribe for:HEAVEN BARBA IV, MD ED General - General Chief Complaint: Anxiety Stated Complaint: ANXIOUS Time Seen by Provider: 03/23/20 20:17 Primary Care Provider: RUTH ANN GHOSH DO [Primary Care Provider] - Follow up as needed Mode of Arrival: Medic Information source: Patient Notes: This 50 year old male patient brought in by EMS presents to the ED today with complaints of anxiety and depression for the past x1 month, worse the past x2 days. Patient states that he usually takes 2 mg Ativan TID for anxiety, 30 mg Oxycontin BID for chronic lower back pain, and Effexor for depression. He reports that he ran out of his anxiety and pain medication. He admits that he cut his left wrist with a knife x2 weeks ago as a suicide attempt; tetanus is UTD. Patient has a history of CVA. Denies suicidal or homicidal ideation at this time. TRAVEL OUTSIDE OF THE [place] IN LAST 30 DAYS: No - Related Data Allergies/Adverse Reactions: iodine Allergy (Verified 06/22/19 10:21) Past Medical History - General Information source: Patient, [facility] Records - Social History Smoking Status: Current Every Day Smoker Cigarette use (# per day): Yes Chew tobacco use (# tins/day): No Smoking Education Provided: No Frequency of alcohol use: None Drug Abuse: None Family History: Reviewed & Not Pertinent Patient has suicidal ideation: No Patient has homicidal ideation: No Neurological Medical History: Reports: Hx Cerebrovascular Accident - 2019, Hx Seizures - Pt reports hx but not taking any medications Endocrine Medical History: Reports: Hx Diabetes Mellitus Type 2 - Pt reports resolved Review of Systems - Review of Systems Constitutional: No symptoms reported EENT: No symptoms reported Cardiovascular: No symptoms reported Respiratory: No symptoms reported Gastrointestinal: No symptoms reported Genitourinary: No symptoms reported Male Genitourinary: No symptoms reported Musculoskeletal: See HPI, Back pain Skin: No symptoms reported Hematologic/Lymphatic: No symptoms reported Neurological/Psychological: See HPI, Depression, Anxiety. denies: Homicidal ideation, Suicidal ideation -: Yes All other systems reviewed and negative Physical Exam - Vital signs Vitals: Temp Pulse Resp BP Pulse Ox 99.3 F 89 18 123/72 96 03/23/20 18:34 03/23/20 18:34 03/23/20 18:34 03/23/20 18:34 03/23/20 18:34 Interpretation: Normal - General General appearance: Alert In distress: None - HEENT Head: Normocephalic, Atraumatic Eyes: Normal Pupils: PERRL - Respiratory Respiratory status: No respiratory distress Chest status: Nontender Breath sounds: Normal Chest palpation: Normal - Cardiovascular Rhythm: Regular Heart sounds: Normal auscultation Murmur: No Friction rub: No Gallop: None auscultated - Abdominal Inspection: Normal Distension: No distension Bowel sounds: Normal Tenderness: Nontender - Abdomen soft Organomegaly: No organomegaly - Back Back: Normal, Nontender - Extremities General upper extremity: Normal inspection General lower extremity: Normal inspection - Neurological Neuro grossly intact: Yes - Psychological Associated symptoms: Other - Patient has intermittent stammering speech that he seems to have voluntary control of when he talks about his need for anxiety and pain medications - Skin Skin Temperature: Warm Skin Moisture: Dry Skin Color: Normal Course - Re-evaluation Re-evalutation: 03/24/20 00:24 Results of ED MSE discussed with patient. All questions were answered prior to discharge. Emergency signs and symptoms, reasons to return to the emergency department discussed with patient. - Vital Signs Vital signs: Temp Pulse Resp BP Pulse Ox 99.3 F 89 20 110/76 98 03/23/20 18:53 03/23/20 18:34 03/24/20 00:27 03/23/20 21:03 03/24/20 00:27 - Laboratory Result Diagrams: 03/23/20 19:56 03/23/20 19:56 Laboratory results interpreted by me: 03/23/20 03/23/20 03/23/20 19:56 19:56 21:52 WBC 11.6 H RBC 5.83 H Hgb 12.0 L Hct 36.3 L MCV 62 L MCH 20.5 L RDW 15.8 H BUN 5 L POC Glucose 139 H ALT 57 H Discharge - Discharge Clinical Impression: Anxiety Condition: Good Disposition: HOME, SELF-CARE Instructions: Anxiety (OM) Additional Instructions: Return to the Emergency Department without delay if any worse. HOME CARE INSTRUCTIONS & INFORMATION: Thank you for choosing us for your medical needs. We hope you're satisfied with the care you received. After you leave, you must properly care for your problem and, at the same time, observe its progress. Any condition can change. Some illnesses can change rapidly over hours or days. If your condition worsens, return to the Emergency Department or see your physician promptly. ABOUT YOUR X-RAYS AND EKG'S: If you had an EKG or X-rays taken, they have been read by the Emergency Physician. The X-rays and EKG's will also be read by a Radiologist or Full Fashioned Garment Knitter within 24 hours. If discrepancies are noted, you will be notified by telephone. Please be certain the ED has a correct telephone number & address where you can be reached. Also, realize that some fractures or abnormalities do not show up on initial X-rays. If your symptoms continue, see your physician. ABOUT YOUR LABORATORY TEST: If you had laboratory tests, the results have been reviewed by the Emergency Physician. Some test results (for example cultures) may not be available for several days. You will be contacted if any test result shows you need additional treatment. Please be certain the ED has a correct telephone number and address where you can be reached. ABOUT YOUR MEDICATIONS: You will receive instructions on how to take your medicine on the prescription label you receive. Additional information may be provided by the Pharmacy. If you have questions afterwards, call the ED for clarification or further instructions. Some prescribed medications may cause drowsiness. Do not perform tasks such as driving a car or operating machinery without consulting your Pharmacist. If you feel you need a refill of pain medication, your condition will need re-evaluation. Please do not call for a refill of any medication. ABOUT YOUR SIGNATURE: Signature of this document acknowledges to followin. Understanding that you received emergency treatment and that you may be released before al medical problems are known or treated. Please be certain the ED has a correct phone number & address where you can be reached. 2. Acknowledgement that you will arrange for follow-up care as recommended. 3. Authorization for the Emergency Physician to provide information to your f ollow-up Physician in order to maximize your care. AT ANY TIME, IF YOUR SYMPTOMS CHANGE SIGNIFICANTLY OR WORSEN OR YOU DEVELOP NEW SYMPTOMS, RETURN TO THE EMERGENCY DEPARTMENT IMMEDIATELY FOR RE-EVALUATION. OUR GOAL IS TO PROVIDE EXCELLENT MEDICAL CARE! WE HOPE THAT WE HAVE MET YOUR EXPECTATIONS DURING YOUR EMERGENCY DEPARTMENT VISIT AND THAT YOU FEEL YOU HAVE RECEIVED EXCELLENT CARE! Anxiety The physician feels that some of your health problems are being caused by anxiety. Anxiety affects your health in many ways. Anxiety alone can cause palpitations, sweats, chest pains, abdominal pains, shortness of breath, and headaches. It contributes to ulcer disease, high blood pressure, irritable bowel syndrome, and has been shown to cause flare-ups of many other diseases. Anxiety is not a simple disorder to treat. If the anxiety is due to recent life stresses, you may simply need time to "work through" the changes. If the anxiety is due to an underlying unhappiness with yourself or due to psychiatric disturbance, professional help will be needed. Your physician can refer you for further help if needed. Anti-anxiety medication is occasionally given if the stress is acute or if you are having trouble sleeping. Chronic or frequent use of these medications is not a good idea because the body becomes reliant on it, preventing you from dealing with life's normal stresses. Prescriptions: Lorazepam [Ativan 1 mg Tablet] 2 mg PO Q8HP PRN #12 tab PRN Reason: Referrals: RUTH ANN GHOSH, DO [Primary Care Provider] - Follow up as needed I personally performed the services described in the documentation, reviewed and edited the documentation which was dictated to the scribe in my presence, and it accurately records my words and actions.
[2020-03-24 00:28] VITALS: BP 110/76
[2020-03-24 11:37] LABS: PATH REVIEW PATHOLOGIST REVIEWED
== END 2020-03-24 00:59 | disposition home or self-care (01) ==
LOC: ER 18:22
DX: F41.9 Anxiety disorder, unspecified (principal); F32.9 Major depressive disorder, single episode, unspecified; F17.210 Nicotine dependence, cigarettes, uncomplicated; R47.89 Other speech disturbances; M54.9 Dorsalgia, unspecified; Z79.899 Other long term (current) drug therapy; Z91.5 Personal history of self-harm; Z86.73 Personal history of transient ischemic attack (TIA), and cerebral infarction without residual deficits
CPT/HCPCS: 93005; 99284; 96374; 96375; 36415; 82962; 80307; 83735; 85025; 80053; 70450; 93010; J2270; J2060

== ENCOUNTER 2020-03-26 19:16 | Emergency (ER) | payer MEDICARE, MEDICAID ==
[2020-03-26 21:11] LABS: ABSOLUTE BASOPHILS # (AUTO) 0.1 10^3/uL (0.0-0.2); ABSOLUTE LYMPHOCYTES (AUTO) 3.3 10^3/uL (0.5-4.7); ABSOLUTE MONOCYTES (AUTO) 0.6 10^3/uL (0.1-1.4); ABSOLUTE NEUT (AUTO) 10.4 10^3/uL (1.7-8.2); BASOPHILS % (AUTO) 0.7 % (0-2); EOSINOPHILS % (AUTO) 0.2 % (0-6); HEMATOCRIT 35.2 % (37.9-51.0); HEMOGLOBIN 11.9 g/dL (13.5-17.0); LYMPHOCYTES % (AUTO) 23.1 % (13-45); MEAN CORPUSCULAR HEMOGLOBIN 20.6 pg (27.0-33.4); MEAN CORPUSCULAR HGB CONC 33.7 g/dL (32.0-36.0); MEAN CORPUSCULAR VOLUME 61 fl (80-97); MONOCYTES % (AUTO) 4.3 % (3-13); PLATELET COUNT 342 10^3/uL (150-450); RED BLOOD COUNT 5.74 10^6/uL (4.35-5.55); RED CELL DISTRIBUTION WIDTH 15.6 % (11.5-14.0); SEGMENTED NEUTROPHILS % (AUTO) 71.7 % (42-78); TOTAL CELLS COUNTED % (AUTO) 100 %; WHITE BLOOD COUNT 14.4 10^3/uL (4.0-10.5)
[2020-03-26 21:17] LABS: ALBUMIN 4.8 g/dL (3.5-5.0); ALKALINE PHOSPHATASE 104 U/L (38-126); ANION GAP 11 (5-19); ASPARTATE AMINO TRANSFERASE 49 U/L (17-59); BILIRUBIN,TOTAL 1.2 mg/dL (0.2-1.3); BLOOD UREA NITROGEN 13 mg/dL (7-20); CALCIUM 9.9 mg/dL (8.4-10.2); CARBON DIOXIDE 25 mmol/L (22-30); CHLORIDE 104 mmol/L (98-107); GLUCOSE 99 mg/dL (75-110); POTASSIUM 3.5 mmol/L (3.6-5.0); TOTAL PROTEIN 7.9 g/dL (6.3-8.2)
[2020-03-26 21:18] LABS: ACETAMINOPHEN < 10 ug/mL (10-30); ALCOHOL < 10 mg/dL (NONE DETECTED); SALICYLATE < 1.0 mg/dL (2.0-20.0)
[2020-03-26 21:26] LABS: ANISOCYTOSIS SLIGHT; HYPOCHROMASIA 1+
[2020-03-26 21:27] LABS: OVALOCYTES SLIGHT; PLATELET COMMENT ADEQUATE
--- NOTE | 2020-03-26 21:45 | ER Document Report ---
ED General - General Chief Complaint: Anxiety Stated Complaint: ANXIETY/CONFUSION/POSSIBLE OVERDOSE Time Seen by Provider: 03/26/20 19:58 Primary Care Provider: RUTH ANN GHOSH DO [Primary Care Provider] - Follow up as needed TRAVEL OUTSIDE OF THE [place] IN LAST 30 DAYS: No - HPI Notes: Patient is a 50-year-old male who presents to the emergency department for evaluation. His chief complaint tonight is anxiety. He states that earlier today he started feeling numbness and tingling. He felt short of breath. He states it felt like an anxiety attack. He states it was "the worst when he is ever had." He states to me that he thinks he made a mistake leaving assisted living. He used to be in [facility], left there a few months ago, thinking he could "do things on his own." Since then he has been hospitalized multiple times. There was concern for a stroke. At one point he did slice his left wrist, to the point where he required a trauma surgeon. He stated here that he was not suicidal when he did that, he was just scared. He told physicians at [facility] that he was paranoid, going through withdrawal, chronic anxiety symptoms, and stated that he tried to slit his wrist because he did not want to go through withdrawals from his chronic pain and anxiety medications. He states to the physicians in [facility] that he regretted his decision immediately and called EMS the patient today denies any suicidal or homicidal ideation. He denies any visual or auditory hallucination. He states his anxiety feels somewhat better, but he still feels very nervous. He admits he is not sure if he takes his medications appropriately, states he frequently forgets them. He states he does not feel safe on his own, and wishes to go back into an assisted living facility. - Related Data Allergies/Adverse Reactions: iodine Allergy (Verified 03/26/20 19:44) Home Medications: From discharge summary, March 07 [facility]: Aspirin 81 mg daily, vitamin D2 50,000 units once a week, hydroxyzine 50 mg 4 times a day as needed, nicotine 14 mg patch, oxycodone 30 mg twice daily, Effexor 75 mg daily, atorvastatin 40 mg at bedtime, lisinopril 20 mg daily Past Medical History - General Information source: Patient - Social History Smoking Status: Former Smoker Family History: Reviewed & Not Pertinent Patient has homicidal ideation: No - Past Medical History Cardiac Medical History: Reports: Hx Hypercholesterolemia, Hx Hypertension Neurological Medical History: Reports: Hx Cerebrovascular Accident - 2019, Hx Seizures - Pt reports hx but not taking any medications Endocrine Medical History: Reports: Hx Diabetes Mellitus Type 2 - Pt reports resolved Review of Systems - Review of Systems Neurological/Psychological: See HPI -: Yes All other systems reviewed and negative Physical Exam - Vital signs Vitals: Resp 13 03/26/20 19:36 - Notes Notes: This is a 50-year-old male appears his stated age, in no acute distress. He is anxious in appearance, but maintains good eye contact. He does not seem to be responding to external stimuli. Vital signs reviewed, please refer to chart. Head is normocephalic, atraumatic. Pupils equal round, reactive to light. Neck is supple without meningismus. Heart is regular rate and rhythm. Lungs are clear to auscultation bilaterally. Abdomen is soft, nontender, normoactive bowel sounds throughout. Extremities without cyanosis, clubbing. Posterior calves are nontender. Peripheral pulses are equal. Skin is warm and dry. He has a healing laceration, linear and horizontally oriented, on the volar aspect of the distal left forearm. No signs of induration, erythema, or dehiscence. Patient is awake, alert, neurological exam is nonfocal. Course - Re-evaluation Re-evalutation: 03/26/20 21:44 Patient presents to the emergency department for evaluation. On arrival he is mildly tachycardic, but I do suspect this is secondary to anxiety. Laboratory investigations are ordered, he is placed on a electronic device monitor. I will go ahead and give him some hydroxyzine, as was recommended by the psychiatry team at [facility]. I will have him continue on all of his regular medications. At this point, I would appreciate psychosocial team's input, given the mixed stories around his potential suicide attempt. Otherwise, I suspect this patient will primarily be a social hold, as I do not feel he is safe to be discharged under his own, and should be placed in at least assisted living. - Vital Signs Vital signs: Temp Pulse Resp BP Pulse Ox 99.1 F 112 H 12 146/95 H 97 03/26/20 19:44 03/26/20 19:44 03/26/20 20:31 03/26/20 20:31 03/26/20 20:31 - Laboratory Result Diagrams: 03/26/20 20:48 03/26/20 20:48 Laboratory results interpreted by me: 03/26/20 03/26/20 20:48 20:48 WBC 14.4 H RBC 5.74 H Hgb 11.9 L Hct 35.2 L MCV 61 L MCH 20.6 L RDW 15.6 H Absolute Neuts (auto) 10.4 H Potassium 3.5 L ALT 75 H Salicylates < 1.0 L Acetaminophen < 10 L Discharge - Discharge Clinical Impression: Anxiety, Failure to thrive in adult Condition: Stable Disposition: OTHER Referrals: RUTH ANN GHOSH, [Primary Care Provider] - Follow up as needed
[2020-03-26] MEDS ORDERED: HYDROXYZINE PAMOATE 50 MG CAPSULE PO ONE (21:49)
[2020-03-26] MEDS ORDERED: VENLAFAXINE HCL 75 MG CAP.SR.24H PO ONE (21:51)
[2020-03-26] MEDS ORDERED: HYDROXYZINE PAMOATE 50 MG CAPSULE PO PRN (21:52)
[2020-03-26] MEDS: ATORVASTATIN CALCIUM 40 MG TABLET PO SCH (22:11)
[2020-03-26] MEDS: OXYCODONE HCL SR 10 MG TABLET PO SCH (22:11)
--- NOTE | 2020-03-27 09:16 | EKG REPORT ---
SEVERITY:- OTHERWISE NORMAL ECG - SINUS TACHYCARDIA RIGHT AXIS DEVIATION : Confirmed by: Jorje Hartley 27-Mar-2020 09:16:06
[2020-03-27] MEDS: ASPIRIN 81 MG TABLET, CHEWABLE PO SCH (09:26)
[2020-03-27] MEDS: OXYCODONE HCL SR 10 MG TABLET PO SCH ×2 (09:26→22:52)
[2020-03-27] MEDS: LISINOPRIL 10 MG TABLET PO SCH (09:27)
--- NOTE | 2020-03-27 14:01 | ER Document Report ---
Doctor's Note Notes: 03/27/20 13:54 Patient's history is reviewed. The [place] controlled substance database shows that the patient has additional monitoring been on high-dose narcotics and benzodiazepines for quite some time. He has been repeatedly asking the nurse for Ativan. The behavioral health team recommends the patient be on Effexor 75 mg daily for 5 days and then stop. They also recommend Depakote 250 mg twice daily. corrections caseworker is trying to find a new place for the patient to live.
[2020-03-27] MEDS: DIVALPROEX SODIUM 250 MG TABLET.DR PO SCH ×2 (14:28→18:10)
[2020-03-27] MEDS: VENLAFAXINE HCL 75 MG TABLET PO SCH (14:29)
--- NOTE | 2020-03-27 18:59 | PSYCHOLOGICAL NOTE ---
Psych Note - Psych Note Date seen by psych provider: 03/27/20 Time seen by psych provider: 13:00 - 1320 Psych Note: Reason for Consult:Anxiety Patient arrived to [facility] ED reporting anxiety and panic attacks. Clinician received [facility], Behavioral health Unit Discharge Summary. Patient was inpatient psychiatric treatment from 03/07/2020 until 03/21/2020 after cutting his left wrist with a knife. Per records, the patient disclosed "I am on a lot of medications and have not taken them the last 3 day;" he reportedly ran out. He confirmed he was attempting to kill himself "because he did not want to go through withdrawals." During his treatment, his effexor was increased and xanax, neurontin, ativan and paxil were discontinued. There was noted concern the patient was displaying cognitive deficits and memory issues that did not show improvement (this is believed to be in connection to his previous strokes); however, "he demonstrated the ability to preform his activities of daily living" and was discharged home via scrap hoist operator. He was to follow up with [facility] 03/25/2020 at 11:00. Clinician presentation: Cognitive deficits probable in connection to previous strokes Depressed Anxious in connection to caring for himself; ie remembering to take medications correctly and ADLs Diagnosis: Major Depressive Disorder per [facility]; Behavioral Health Unit records Unspecified Anxiety disorder per [facility]; Behavioral Health Unit records Medication recommendations per [facility]'s contracted psychiatrist Dr. Maria Fernanda BUI are as follows: Please decrease home medication of Effexor to 75mg for 5 days then discontinue Please add Depakote 250mg twice daily Impression/Plan: Patient is cleared from acute psychiatric services. Dr. Morales was consulted on the care and mangement of this patient;attending physician is in agreement with recommendations and disposition.
[2020-03-27] MEDS: ATORVASTATIN CALCIUM 40 MG TABLET PO SCH (22:53)
[2020-03-28 00:59] LABS: APPEARANCE,URINE CLEAR; BILIRUBIN,URINE NEGATIVE (NEGATIVE); COLOR,URINE YELLOW; GLUCOSE, URINE NEGATIVE (NEGATIVE); KETONES,URINE NEGATIVE (NEGATIVE); LEUKOCYTE ESTERASE,URINE NEGATIVE (NEGATIVE); NITRITE,URINE NEGATIVE (NEGATIVE); PROTEIN,URINE NEGATIVE (NEGATIVE); URINE SPECIFIC GRAVITY 1.023
[2020-03-28 01:06] LABS: URINE AMPHETAMINES SCREEN NEGATIVE; URINE BARBITURATES SCREEN NEGATIVE; URINE BENZODIAZEPINES SCREEN NEGATIVE; URINE COCAINE SCREEN NEGATIVE; URINE MARIJUANA (THC) SCREEN NEGATIVE; URINE METHADONE SCREEN NEGATIVE; URINE PHENCYCLIDINE SCREEN NEGATIVE
[2020-03-28] MEDS ORDERED: VENLAFAXINE HCL 75 MG TABLET PO SCH (10:15)
[2020-03-28] MEDS: OXYCODONE HCL SR 10 MG TABLET PO SCH (10:18)
[2020-03-28] MEDS: ASPIRIN 81 MG TABLET, CHEWABLE PO SCH (10:19)
[2020-03-28] MEDS: LISINOPRIL 10 MG TABLET PO SCH (10:19)
[2020-03-28] MEDS: DIVALPROEX SODIUM 250 MG TABLET.DR PO SCH (10:19)
[2020-03-28] MEDS: VENLAFAXINE HCL 75 MG TABLET PO SCH (10:20)
[2020-03-28] MEDS ORDERED: ATORVASTATIN CALCIUM 40 MG TABLET PO ONE (16:44)
[2020-03-28] MEDS ORDERED: DIVALPROEX SODIUM 250 MG TABLET.DR PO ONE (16:45)
[2020-03-28] MEDS ORDERED: HYDROXYZINE PAMOATE 50 MG CAPSULE PO ONE (16:45)
[2020-03-28] MEDS ORDERED: LISINOPRIL 10 MG TABLET PO ONE (16:46)
[2020-03-28] MEDS ORDERED: HYDROCODONE/ACETAMINOPHEN 5-325 MG (6 TAB/ER DISP) PO PRN (16:47)
[2020-03-28] MEDS ORDERED: VENLAFAXINE HCL 75 MG TABLET PO ONE (16:47)
[2020-03-28 17:22] VITALS: BP 115/76
== END 2020-03-28 17:22 | disposition home or self-care (01) ==
LOC: ER 19:16
DX: F41.9 Anxiety disorder, unspecified (principal); R62.7 Adult failure to thrive; R00.0 Tachycardia, unspecified; E78.00 Pure hypercholesterolemia, unspecified; I10 Essential (primary) hypertension; Z86.73 Personal history of transient ischemic attack (TIA), and cerebral infarction without residual deficits; Z79.82 Long term (current) use of aspirin; Z79.899 Other long term (current) drug therapy
CPT/HCPCS: 93005; 99285; 36415; 80307 ×4; 84443; 85025; 80053; 81001; 93010; A9270 ×19

== ENCOUNTER 2020-04-11 14:40 | Observation (INO) | payer MEDICARE, MEDICAID ==
--- NOTE | 2020-04-11 15:01 | ER Document Report ---
ED Medical Screen (RME) - General TRAVEL OUTSIDE OF THE [place] IN LAST 30 DAYS: No <FORTUNATO CARRILLO - Last Filed: 04/11/20 15:00> <SON LARSEN JR - Last Filed: 04/11/20 17:32> - General Chief Complaint: Flank Pain Stated Complaint: RIGHT SIDE PAIN Time Seen by Provider: 04/11/20 14:53 Primary Care Provider: RUTH ANN GHOSH DO [ACTIVE STAFF] - Follow up as needed Notes: Patient is a 50-year-old male who presents the emergency department with a chief complaint of right-sided weakness. Last known well time was last night. Patient woke up at 6 AM not being able to lift his right arm and leg. Patient also has associated chest pain. Patient is a smoker. He has a history of hypertension. Exam: Right-sided flaccidness. I have greeted and performed a rapid initial assessment of this patient. A comprehensive ED assessment and evaluation of the patient, analysis of test results and completion of medical decision making process will be conducted by an additional ED providers. (FORTUNATO CARRILLO) - Related Data Allergies/Adverse Reactions: iodine Allergy (Verified 04/11/20 14:51) Past Medical History - Past Medical History Cardiac Medical History: Reports: Hx Hypercholesterolemia, Hx Hypertension Neurological Medical History: Reports: Hx Cerebrovascular Accident - 2019, Hx Seizures - Pt reports hx but not taking any medications Endocrine Medical History: Reports: Hx Diabetes Mellitus Type 2 - Pt reports resolved <FORTUNATO CARRILLO - Last Filed: 04/11/20 15:00> Physical Exam - Vital signs Vitals: Temp Pulse Resp BP Pulse Ox 98.9 F 94 16 136/88 H 97 04/11/20 14:45 04/11/20 14:45 04/11/20 14:45 04/11/20 14:45 04/11/20 14:45 Course - Laboratory Result Diagrams: 04/11/20 15:45 04/11/20 15:20 <SON LARSEN JR - Last Filed: 04/11/20 17:32> - Vital Signs Vital signs: Temp Pulse Resp BP Pulse Ox 98.9 F 91 18 139/70 H 98 04/11/20 14:45 04/11/20 15:30 04/11/20 17:01 04/11/20 17:01 04/11/20 17:01 - Laboratory Laboratory results interpreted by me: 04/11/20 04/11/20 15:20 15:45 WBC 12.2 H RBC 5.69 H Hgb 11.3 L Hct 35.3 L MCV 62 L MCH 19.8 L RDW 16.4 H Absolute Neuts (auto) 9.1 H Chloride 108 H Glucose 122 H Doctor's Discharge <FORTUNATO CARRILLO - Last Filed: 04/11/20 15:00> <SON LARSEN JR - Last Filed: 04/11/20 17:32> - Discharge Referrals: RUTH ANN GHOSH DO [ACTIVE STAFF] - Follow up as needed
--- NOTE | 2020-04-11 15:17 | RADIOLOGY REPORT (SQ) ---
EXAM DESCRIPTION: CT HEAD WITHOUT IMAGES COMPLETED DATE/TIME: 04/11/2020 3:04 pm REASON FOR STUDY: Right sided weakness COMPARISON: 03/23/2020 TECHNIQUE: Axial images acquired through the brain without intravenous contrast. Images reviewed wi th bone, brain and subdural windows. Additional sagittal and coronal reconstructions were generated. Images stored on PACS. All CT scanners at this facility use dose modulation, iterative reconstruction, and/or weight based d osing when appropriate to reduce radiation dose to as low as reasonably achievable (ALARA). [facility]: Dose Right [facility]: CareDose [facility]: Dose Right [facility]: Teradose 4D [facility]: Smart VIRTRA SYSTEMS RADIATION DOSE: CT Rad equipment meets quality standard of care and radiation dose reduction techniq ues were employed. CTDIvol: 53.2 mGy. DLP: 937 mGy-cm. mGy. LIMITATIONS: None. FINDINGS: VENTRICLES: Normal size and contour. CEREBRUM: No masses. No hemorrhage. No midline shift. No evidence for acute infarction. Normal gra y/white matter differentiation. No areas of low density in the white matter. CEREBELLUM: No masses. No hemorrhage. No alteration of density. No evidence for acute infarction. EXTRAAXIAL SPACES: No fluid collections. No masses. ORBITS AND GLOBE: No intra- or extraconal masses. Normal contour of globe without masses. CALVARIUM: No fracture. PARANASAL SINUSES: No fluid or mucosal thickening. SOFT TISSUES: No mass or hematoma. OTHER: No other significant finding. IMPRESSION: NORMAL BRAIN CT WITHOUT CONTRAST. EVIDENCE OF ACUTE STROKE: NO. COMMENT: Quality ID # [id number]: Final reports with documentation of one or more dose reduction techniques (e.g., Automated exposure control, adjustment of the mA and/or kV according to patient size, use of iterative reconstruction technique) TECHNICAL DOCUMENTATION: JOB ID: [id number] 2010 [employer]- All Rights Reserved Reading location - IP/workstation name: [email or web address]
--- NOTE | 2020-04-11 15:23 | RADIOLOGY REPORT (SQ) ---
EXAM DESCRIPTION: CHEST SINGLE VIEW IMAGES COMPLETED DATE/TIME: 04/11/2020 3:06 pm REASON FOR STUDY: Right sided weakness; chest pain COMPARISON: 03/06/2020 EXAM PARAMETERS: NUMBER OF VIEWS: One view. TECHNIQUE: Single frontal radiographic view of the chest acquired. RADIATION DOSE: NA LIMITATIONS: None. FINDINGS: LUNGS AND PLEURA: No opacities, masses or pneumothorax. No pleural effusion. MEDIASTINUM AND HILAR STRUCTURES: No masses. Contour normal. HEART AND VASCULAR STRUCTURES: Heart normal in size. Normal vasculature. BONES: No acute findings. HARDWARE: None in the chest. OTHER: No other significant finding. IMPRESSION: NO ACUTE RADIOGRAPHIC FINDING IN THE CHEST. TECHNICAL DOCUMENTATION: JOB ID: [id number] 2010 [employer]- All Rights Reserved Reading location - IP/workstation name: [email or web address]
[2020-04-11 15:52] LABS: ALBUMIN 4.7 g/dL (3.5-5.0); ALKALINE PHOSPHATASE 101 U/L (38-126); ANION GAP 6 (5-19); ASPARTATE AMINO TRANSFERASE 32 U/L (17-59); BLOOD UREA NITROGEN 7 mg/dL (7-20); CALCIUM 10.2 mg/dL (8.4-10.2); CARBON DIOXIDE 26 mmol/L (22-30); CHLORIDE 108 mmol/L (98-107); GLUCOSE 122 mg/dL (75-110); TOTAL PROTEIN 7.9 g/dL (6.3-8.2)
[2020-04-11 16:04] LABS: ABSOLUTE BASOPHILS # (AUTO) 0.1 10^3/uL (0.0-0.2); ABSOLUTE LYMPHOCYTES (AUTO) 2.4 10^3/uL (0.5-4.7); ABSOLUTE MONOCYTES (AUTO) 0.6 10^3/uL (0.1-1.4); ABSOLUTE NEUT (AUTO) 9.1 10^3/uL (1.7-8.2); BASOPHILS % (AUTO) 0.5 % (0-2); EOSINOPHILS % (AUTO) 0.1 % (0-6); HEMATOCRIT 35.3 % (37.9-51.0); HEMOGLOBIN 11.3 g/dL (13.5-17.0); LYMPHOCYTES % (AUTO) 19.9 % (13-45); MEAN CORPUSCULAR HEMOGLOBIN 19.8 pg (27.0-33.4); MONOCYTES % (AUTO) 4.7 % (3-13); PLATELET COUNT 441 10^3/uL (150-450); RED BLOOD COUNT 5.69 10^6/uL (4.35-5.55); RED CELL DISTRIBUTION WIDTH 16.4 % (11.5-14.0); SEGMENTED NEUTROPHILS % (AUTO) 74.8 % (42-78); TOTAL CELLS COUNTED % (AUTO) 100 %; WHITE BLOOD COUNT 12.2 10^3/uL (4.0-10.5)
[2020-04-11 16:26] LABS: MEAN CORPUSCULAR VOLUME 62 fl (80-97)
[2020-04-11 16:28] LABS: ANISOCYTOSIS 1+; POLYCHROMASIA 1+
[2020-04-11 16:29] LABS: PLATELET COMMENT ADEQUATE; POIKILOCYTOSIS 1+; TARGET CELLS 1+
[2020-04-11 16:30] LABS: HYPOCHROMASIA SLIGHT; OVALOCYTES SLIGHT
[2020-04-11 16:41] LABS: INTERNATIONAL RATION (INR) 1.09; PROTHROMBIN TIME 14.1 SEC (11.4-15.4)
[2020-04-11 16:42] LABS: PARTIAL THROMBOPLASTIN TIME 26.9 SEC (23.5-35.8)
--- NOTE | 2020-04-11 17:32 | ER Document Report ---
ED General - General Chief Complaint: Numbness Stated Complaint: RIGHT SIDE PAIN Time Seen by Provider: 04/11/20 14:53 Primary Care Provider: RUTH ANN GHOSH DO [ACTIVE STAFF] - Follow up as needed Mode of Arrival: Medic Information source: Patient Notes: triage note 04/11/20 14:53 - ED Nursing Note by MISTYGUERA Accjacqueline Num: [id number] : 1970 Patient Age: 50 Patient to the ED with complaint of R sided pain and numbness, States that it started at around [id number] this AM. States that he was normal before he went to bed last night. Place notes Patient is a 50-year-old male who presents the emergency department with a chief complaint of right-sided weakness. Last known well time was last night. Patient woke up at 6 AM not being able to lift his right arm and leg. Patient also has associated chest pain. Patient is a smoker. He has a history of hypertension. Exam: Right-sided flaccidness. My note 50-year-old male arrives by EMS after his [facility] care nurse saw him this morning and advised him to be taken to the ER by ambulance. Patient awoke at 0600 this morning complaining of right sided weakness unable to move his right arm or right leg. Patient reports she had a stroke last year and required rehab in order to achieve movement of his left lower extremity left upper extremity but today he is able to move his left arm and left leg well but not his right side. Patient says also he has some anxiety and usually takes lorazepam 3 times a day 1 mg and has not taken his daily dose. He also wants something for pain. His blood pressure and his heart rate are within normal limits at this time. TRAVEL OUTSIDE OF THE [place] IN LAST 30 DAYS: No - HPI Onset: This morning Onset/Duration: Sudden Quality of pain: No pain Severity: Severe Pain Level: 4 Associated symptoms: Weakness Exacerbated by: Denies Relieved by: Denies Similar symptoms previously: Yes Recently seen / treated by doctor: No - Related Data Allergies/Adverse Reactions: iodine Allergy (Verified 04/11/20 14:51) Home Medications: Venaflaxin. Atorvastatin. Lorazepam Past Medical History - General Information source: Patient, Emergency Med Personnel - Social History Smoking Status: Current Every Day Smoker Cigarette use (# per day): Yes Chew tobacco use (# tins/day): No Smoking Education Provided: Yes Frequency of alcohol use: None Drug Abuse: None Lives with: Alone Family History: Reviewed & Not Pertinent Patient has homicidal ideation: No - Past Medical History Cardiac Medical History: Reports: Hx Hypercholesterolemia, Hx Hypertension Neurological Medical History: Reports: Hx Cerebrovascular Accident - 2019, Hx Seizures - Pt reports hx but not taking any medications Endocrine Medical History: Reports: Hx Diabetes Mellitus Type 2 - Pt reports resolved Review of Systems - Review of Systems Constitutional: No symptoms reported, Weakness, Other - And numbness to his right arm and right lower extremity EENT: No symptoms reported Cardiovascular: No symptoms reported Respiratory: No symptoms reported Gastrointestinal: No symptoms reported Genitourinary: No symptoms reported Male Genitourinary: No symptoms reported Musculoskeletal: See HPI, Other - No use of right upper or right lower extremity with 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 and no movement of right knee right hip right ankle or foot Skin: No symptoms reported Hematologic/Lymphatic: No symptoms reported Neurological/Psychological: No symptoms reported Physical Exam - Vital signs Vitals: Temp Pulse Resp BP Pulse Ox 98.9 F 94 16 136/88 H 97 04/11/20 14:45 04/11/20 14:45 04/11/20 14:45 04/11/20 14:45 04/11/20 14:45 - General General appearance: Appears well - HEENT Head: Normocephalic Eyes: Normal Pupils: PERRL Nasal: Normal Mouth/Lips: Normal Mucous membranes: Normal Pharynx: Normal Neck: Normal - Respiratory Respiratory status: No respiratory distress Chest status: Nontender Breath sounds: Normal Chest palpation: Normal - Cardiovascular Rhythm: Regular Heart sounds: Normal auscultation Murmur: No - Abdominal Inspection: Normal Distension: No distension Bowel sounds: Normal Tenderness: Nontender Organomegaly: No organomegaly - Back Back: Normal - Extremities General upper extremity: Other - No sensation no range of motion actively of right upper extremity or right lower extremity General lower extremity: Other - No sensation no range of motion actively of right upper extremity or right lower extremity - Neurological Neuro grossly intact: Yes Cognition: Normal Orientation: AAOx4 Nigel Coma Scale Eye Opening: Spontaneous Nigel Coma Scale Verbal: Oriented [place] Coma Scale Motor: Obeys Commands [place] Coma Scale Total: 15 Speech: Normal Motor strength normal: LUE, LLE Sensory: Normal - Psychological Associated symptoms: Normal affect - Skin Skin Temperature: Warm Skin Moisture: Dry Course - Vital Signs Vital signs: Temp Pulse Resp BP Pulse Ox 98.3 F 84 13 117/95 H 98 04/11/20 20:01 04/11/20 21:59 04/11/20 22:15 04/11/20 22:15 04/11/20 22:15 - Laboratory Result Diagrams: 04/11/20 15:45 04/11/20 15:20 Laboratory results interpreted by me: 04/11/20 04/11/20 15:20 15:45 WBC 12.2 H RBC 5.69 H Hgb 11.3 L Hct 35.3 L MCV 62 L MCH 19.8 L RDW 16.4 H Absolute Neuts (auto) 9.1 H Chloride 108 H Glucose 122 H Critical Care Note - Critical Care Note Total time excluding time spent on procedures (mins): 90 Comments: I spoke with Rowena at transfer center at [facility] around 2114 and she advises power chair images to her hospital as well as facesheet to her. I spoke with Anjel and Dr. Suero around 2137 who denied transfer and also at [address] Phelan the neurologist and he advises it does not appear to be stroke by negative MRI and negative CT scan. I spoke with our hospitalist Dr. Escalante and he advises rechecking at [place] prior to admission here. I spoke with Dr. Alek Chambers neurologist in [place] via [facility] transfer center; he advises MRI of neck tomorrow morning to rule out transverse myelitis. He also advises he will be available for consult. I called back Dr. Boris Paulino and he advises this patient has a history of drug-seeking behavior and was seen on 04 March for similar story. I spoke with the patient again at 2299 to advise him of potential admission but no pain medicine per Dr. Escalante's orders. I spoke with the patient at 2304 and he advises he takes OxyContin for his back pain and lisinopril for his blood pressure. The patient's blood pressure is 115/70. I advised the patient he would not be having any pain medicine while on the floor. 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
[2020-04-11] MEDS ORDERED: LORAZEPAM INJ 2 MG/1 ML VIAL IV ONE ×2 (17:48→18:40)
[2020-04-11] MEDS ORDERED: KETOROLAC TROMETHAMINE INJ/PF 30 MG/1 ML SDV IV ONE (17:49)
[2020-04-11] MEDS ORDERED: MIDAZOLAM 2 MG/2 ML INJ IV ONE (19:20)
--- NOTE | 2020-04-11 20:03 | RADIOLOGY REPORT (SQ) ---
EXAM DESCRIPTION: MRI HEAD COMBO IMAGES COMPLETED DATE/TIME: 04/11/2020 7:50 pm REASON FOR STUDY: r weakness COMPARISON: CT 04/11/2020 TECHNIQUE: Multiplanar imaging includes noncontrasted T1, T2, FLAIR, diffusion with ADC map and post gadolinium contrast T1 sequences. Images stored on PACS. CONTRAST TYPE AND DOSE: 15 mL Prohance. RENAL FUNCTION: Not indicated. ACR Type II contrast agent associated with few, if any, unconfounded cases of NSF LIMITATIONS: None. FINDINGS: ANATOMY: No anomalies. Normal vascular flow voids. Pituitary fossa normal. CSF SPACES: Normal in size and contour. No hemorrhage. CEREBRUM: Sulci and gyri normal in size and contour. Normal white matter signal on FLAIR imaging. No evidence of hemorrhage, mass, or extraaxial fluid collection. No abnormal enhancement post contrast. POSTERIOR FOSSA: No signal alteration. No hemorrhage. No edema, masses, or mass effect. Internal kunal tory canals, cerebellopontine angles, mastoids normal. No enhancing lesions. No abnormal enhancement post contrast. DIFFUSION IMAGING: Negative for acute or subacute infarction. ORBITS: No masses. Globes normal. PARANASAL SINUSES: No fluid levels. Mucosa normal. OTHER: No other significant finding. IMPRESSION: NORMAL MRI OF THE BRAIN WITHOUT AND WITH INTRAVENOUS GADOLINIUM CONTRAST. EVIDENCE OF ACUTE STROKE: NO. TECHNICAL DOCUMENTATION: JOB ID: [id number] 2010 [employer]- All Rights Reserved Reading location - IP/workstation name: [email or web address]
--- NOTE | 2020-04-11 20:22 | EKG REPORT ---
SEVERITY:- NORMAL ECG - SINUS RHYTHM : Confirmed by: Marques Martinez MD 11-Apr-2020 20:22:01
[2020-04-11] MEDS ORDERED: MAG HYDROX/AL HYDROX/SIMETH SUSP 30 ML UDCUP PO PRN (23:50)
[2020-04-11] MEDS ORDERED: PROMETHAZINE HCL INJ 25 MG/1 ML VIAL IV PRN (23:50)
[2020-04-11] MEDS ORDERED: MAGNESIUM HYDROXIDE SUSP 30 ML UDCUP PO PRN (23:50)
[2020-04-11] MEDS ORDERED: HYDRALAZINE HCL INJ/PF 20 MG/1 ML SDV IV PRN (23:58)
[2020-04-11] MEDS ORDERED: GUAIFENESIN SYRP 200 MG/10 ML UDC PO PRN (23:58)
[2020-04-11] MEDS ORDERED: ACETAMINOPHEN 325 MG TABLET PO PRN (23:58)
[2020-04-12] MEDS ORDERED: FAMOTIDINE 20 MG TABLET PO ONE ×2 (00:15→06:00)
[2020-04-12] MEDS ORDERED: OLANZAPINE INJ/PF 10 MG SDV IM ONE ×3 (00:18→06:08)
[2020-04-12] MEDS ORDERED: HYDROXYZINE HCL INJ 50 MG/1 ML VIAL IM PRN (00:18)
[2020-04-12] MEDS ORDERED: KETOROLAC TROMETHAMINE 60 MG/2 ML SDV IM PRN (00:20)
[2020-04-12 01:24] LABS: TROPONIN I < 0.012 ng/mL
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
[2020-04-12] MEDS: CLONAZEPAM 1 MG TABLET PO SCH ×2 (06:24→11:54)
[2020-04-12] MEDS: HEPARIN SOD (PORCINE) 5,000 UNIT/ML 1 ML VIAL SUBCUT SCH ×3 (06:27→22:44)
[2020-04-12 07:06] LABS: HEMATOCRIT 34.1 % (37.9-51.0); HEMOGLOBIN 11.1 g/dL (13.5-17.0); MEAN CORPUSCULAR HEMOGLOBIN 20.2 pg (27.0-33.4); MEAN CORPUSCULAR HGB CONC 32.4 g/dL (32.0-36.0); MEAN CORPUSCULAR VOLUME 62 fl (80-97); PLATELET COUNT 391 10^3/uL (150-450); RED BLOOD COUNT 5.47 10^6/uL (4.35-5.55); RED CELL DISTRIBUTION WIDTH 16.4 % (11.5-14.0); WHITE BLOOD COUNT 9.5 10^3/uL (4.0-10.5)
[2020-04-12 07:27] LABS: ALBUMIN 4.3 g/dL (3.5-5.0); ALKALINE PHOSPHATASE 85 U/L (38-126); ANION GAP 10 (5-19); ASPARTATE AMINO TRANSFERASE 29 U/L (17-59); BILIRUBIN,TOTAL 0.9 mg/dL (0.2-1.3); BLOOD UREA NITROGEN 12 mg/dL (7-20); CALCIUM 9.6 mg/dL (8.4-10.2); CARBON DIOXIDE 23 mmol/L (22-30); CHLORIDE 107 mmol/L (98-107); CHOLESTEROL 146.92 mg/dL (0-200); CREATINE KINASE 48 U/L (55-170); GLUCOSE 142 mg/dL (75-110); POTASSIUM 3.9 mmol/L (3.6-5.0); TOTAL PROTEIN 7.2 g/dL (6.3-8.2); TRIGLYCERIDES 129 mg/dL (<150)
[2020-04-12 07:41] LABS: DIRECT LDL 96 mg/dL (<100)
[2020-04-12 07:43] LABS: CREATINE KINASE MB 0.43 ng/mL (<4.55)
[2020-04-12 07:47] LABS: TROPONIN I < 0.012 ng/mL
--- NOTE | 2020-04-12 11:51 | PDOC PROGRESS REPORT ---
Subjective Progress Note for:: 04/12/20 Subjective:: HEAVEN FAIRCHILD is a 50 year old male presenting to the emergency room this afternoon with acute complete paralysis and numbness of his right upper and lower extremity. He admits to going to bed on the evening of 04/10/2020 in his usual state of health. He woke at approximately 6 AM this morning and discovered that his entire right side was completely devoid of sensation and he was unable to move his right arm or right leg as they were completely paralyzed. He was discovered in this state by his home health nurse and sent to the hospital via ambulance. He admits prior similar episodes 1 with a stroke in 2019 (treated with TPA) which he indicates today involved his left side and he was left with residual left arm and leg weakness requiring physical therapy. 1 month ago he was seen for a similar complaint with left sided paralysis and numbness and a history of a previous stroke in 2019, involving his right side and requiring post TPA therapy ongoing physical therapy for residual weakness. Transfer to [facility] had been arranged for the patient to have a neurologic evaluation at that time when he had dramatic complete resolution of his symptoms and left the ER AGAINST MEDICAL ADVICE. He admits associated chest discomfort earlier in the day and also has accompanying chronic pain and anxiety for which he takes oxycodone and lorazepam. He has not identified any aggravating or ameliorating factors for his acute paralysis. In the emergency room he was found to have a CT of the head which was negative for acute changes and an MRI of the head which was also negative for evidence of stroke. The strong likelihood of a conversion disorder was discussed with the emergency room physician and the patient was subsequently admitted to the medical service for further evaluation and treatment. 04/12/2020. Patient comfortably resting in bed in no apparent distress, alert and restlessly, patient is reporting left upper and lower extremity weakness with no significant improvement compared to admission. Denies any headache, chest pain, shortness of breath, nausea, vomiting, diarrhea, constipation or any urinary symptoms. Reason For Visit: ACUTE CONVERSION DISORDER WITH PARALYSIS AND Physical Exam Vital Signs: Temp Pulse Resp BP Pulse Ox 98.5 F 85 17 111/68 100 04/12/20 04:18 04/12/20 04:18 04/12/20 04:18 04/12/20 04:18 04/12/20 04:18 Intake & Output 0604/12/20 04/13/20 06:59 06:59 06:59 Output Total 0 Balance 0 Weight 88.7 kg General appearance: PRESENT: obese Respiratory exam: PRESENT: clear to auscultation arline. ABSENT: rales, rhonchi, wheezes Cardiovascular exam: PRESENT: RRR. ABSENT: diastolic murmur, rubs, systolic murmur GI/Abdominal exam: PRESENT: normal bowel sounds, soft. ABSENT: distended, guarding, mass, organolmegaly, rebound, tenderness Extremities exam: PRESENT: full ROM. ABSENT: calf tenderness, clubbing, pedal edema Neurological exam: PRESENT: alert, awake, oriented to person, oriented to place, oriented to time, oriented to situation, CN II-XII grossly intact, motor sensory deficit - Right upper extremity strength 3/5, right lower extremity strength 3/5. Left upper extremity strength 5/5, left lower extremity strength 5/5. Reporting mild sensory loss right upper and lower extremity. Results Laboratory Results: 04/12/20 06:41 04/12/20 06:41 04/11/20 04/11/20 04/11/20 15:20 15:20 15:45 WBC Cancelled 12.2 H RBC Cancelled 5.69 H Hgb Cancelled 11.3 L Hct Cancelled 35.3 L MCV Cancelled 62 L MCH Cancelled 19.8 L MCHC Cancelled 32.0 RDW Cancelled 16.4 H Plt Count Cancelled 441 Seg Neutrophils % Cancelled 74.8 Sodium 139.6 Potassium 4.0 Chloride 108 H Carbon Dioxide 26 Anion Gap 6 BUN 7 Creatinine 0.52 Est GFR ( Amer) > 60 Glucose 122 H Calcium 10.2 Magnesium Total Bilirubin 1.0 AST 32 Alkaline Phosphatase 101 Total Protein 7.9 Albumin 4.7 Triglycerides Cholesterol LDL Cholesterol Direct VLDL Cholesterol HDL Cholesterol TSH 04/12/20 04/12/20 04/12/20 06:41 06:41 06:41 WBC 9.5 RBC 5.47 Hgb 11.1 L Hct 34.1 L MCV 62 L MCH 20.2 L MCHC 32.4 RDW 16.4 H Plt Count 391 Seg Neutrophils % Sodium 139.8 Potassium 3.9 Chloride 107 Carbon Dioxide 23 Anion Gap 10 BUN 12 Creatinine 0.63 Est GFR ( Amer) > 60 Glucose 142 H Calcium 9.6 Magnesium 1.7 Total Bilirubin 0.9 AST 29 Alkaline Phosphatase 85 Total Protein 7.2 Albumin 4.3 Triglycerides 129 Cholesterol 146.92 LDL Cholesterol Direct 96 VLDL Cholesterol 26.0 HDL Cholesterol 27 L TSH 0.04 L 04/12/20 04/12/20 04/12/20 00:39 00:39 06:41 Creatine Kinase 47 L 48 L CK-MB (CK-2) 0.40 Troponin I < 0.012 04/12/20 06:41 Creatine Kinase CK-MB (CK-2) 0.43 Troponin I < 0.012 Impressions: Head CT 04/11/20 14:56 IMPRESSION: NORMAL BRAIN CT WITHOUT CONTRAST. EVIDENCE OF ACUTE STROKE: NO. Chest X-Ray 04/11/20 14:57 IMPRESSION: NO ACUTE RADIOGRAPHIC FINDING IN THE CHEST. Head MRI 04/11/20 17:36 IMPRESSION: NORMAL MRI OF THE BRAIN WITHOUT AND WITH INTRAVENOUS GADOLINIUM CONTRAST. EVIDENCE OF ACUTE STROKE: NO. 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 Patient has had similar presentation in the past with abrupt resolution of symptoms. These symptoms could be either conversion disorder or malingering. Continue antiplatelets, statins, neurochecks. Monitor for seizure, aspiration precaution and fall precaution. PT OT ST. We will consider psych evaluation if no resolution of symptoms. (2) Chronic pain syndrome Is this a current diagnosis for this admission?: Yes Plan: History of chronic musculoskeletal pain with opioid dependency. Resume home meds. Monitor for respiratory depression and fall. Patient PCP and pain management follow-up. (3) Generalized anxiety disorder Is this a current diagnosis for this admission?: Yes Plan: History of general anxiety and depression. Resume home meds. Monitor for respiratory depression. (4) Tobacco use disorder, continuous Is this a current diagnosis for this admission?: Yes Plan: Counseled on quitting. Continue current patch. (5) Depression Qualifiers: Depression Type: major depressive disorder Is this a current diagnosis for this admission?: Yes Plan: Chronic depression. Denies any suicidal or homicidal ideation. Has been evaluated by psych in the past. Resume home meds. Outpatient psychiatry and PCP follow-up. - Plan Summary Summary: The patient is admitted to the medical floor where he will receive routine supportive and symptomatic cares. A psychiatric consultation will be obtained as soon as possible. Patient will be treated initially with IM olanzapine. And neurologic checks will be performed every hour x4 and then every 4 hours thereafter. He will receive a cardiac diet. CBCs, metabolic profiles, magnesium levels, serial cardiac enzymes, lipid profiles, thyroid profiles and hemoglobin A1c will be obtained as appropriate. Initially patient will receive hydralazine 20 mg IV every 4 hours as needed for control of hypertension with a systolic blood pressure greater than 160 or diastolic blood pressure greater than 100. Smoking cessation is advised and counseled briefly at the bedside. A nicotine replacement patch is available for the patient's use, if desired.
[2020-04-12] MEDS: DIVALPROEX SODIUM 250 MG TABLET.DR PO SCH (11:54)
[2020-04-12] MEDS: FAMOTIDINE 20 MG TABLET PO SCH ×2 (11:55→22:51)
[2020-04-12] MEDS: DOCUSATE SODIUM 100 MG CAPSULE PO SCH ×2 (11:55→17:32)
[2020-04-12] MEDS ORDERED: OLANZAPINE INJ/PF 10 MG SDV IM SCH (22:00)
[2020-04-12] MEDS ORDERED: (PENDING PHARMACY ID) (Oxycodone Hcl [Oxycontin] 30 MG) PO SCH (22:00)
[2020-04-12] MEDS ORDERED: OXYCODONE HCL SR 10 MG TABLET PO SCH (22:00)
[2020-04-12] MEDS: ATORVASTATIN CALCIUM 40 MG TABLET PO SCH (22:51)
[2020-04-13] MEDS: HEPARIN SOD (PORCINE) 5,000 UNIT/ML 1 ML VIAL SUBCUT SCH ×3 (05:40→21:22)
[2020-04-13] MEDS: LORAZEPAM 1 MG TABLET PO PRN (08:39)
[2020-04-13] MEDS: FAMOTIDINE 20 MG TABLET PO SCH ×2 (09:51→21:19)
[2020-04-13] MEDS: VENLAFAXINE HCL 75 MG TABLET PO SCH (09:51)
[2020-04-13] MEDS: NICOTINE 21 MG/24 HR PATCH.TD24 TD PRN (09:57)
[2020-04-13] MEDS ORDERED: OXYCODONE HCL SR 10 MG TABLET PO SCH (10:00)
[2020-04-13] MEDS: DOCUSATE SODIUM 100 MG CAPSULE PO SCH ×2 (10:04→17:42)
--- NOTE | 2020-04-13 12:03 | PDOC PROGRESS REPORT ---
Subjective Progress Note for:: 04/13/20 Subjective:: HEAVEN FAIRCHILD is a 50 year old male presenting to the emergency room this afternoon with acute complete paralysis and numbness of his right upper and lower extremity. He admits to going to bed on the evening of 04/10/2020 in his usual state of health. He woke at approximately 6 AM this morning and discovered that his entire right side was completely devoid of sensation and he was unable to move his right arm or right leg as they were completely paralyzed. He was discovered in this state by his home health nurse and sent to the hospital via ambulance. He admits prior similar episodes 1 with a stroke in 2019 (treated with TPA) which he indicates today involved his left side and he was left with residual left arm and leg weakness requiring physical therapy. 1 month ago he was seen for a similar complaint with left sided paralysis and numbness and a history of a previous stroke in 2019, involving his right side and requiring post TPA therapy ongoing physical therapy for residual weakness. Transfer to [facility] had been arranged for the patient to have a neurologic evaluation at that time when he had dramatic complete resolution of his symptoms and left the ER AGAINST MEDICAL ADVICE. He admits associated chest discomfort earlier in the day and also has accompanying chronic pain and anxiety for which he takes oxycodone and lorazepam. He has not identified any aggravating or ameliorating factors for his acute paralysis. In the emergency room he was found to have a CT of the head which was negative for acute changes and an MRI of the head which was also negative for evidence of stroke. The strong likelihood of a conversion disorder was discussed with the emergency room physician and the patient was subsequently admitted to the medical service for further evaluation and treatment. 04/12/2020. Patient comfortably resting in bed in no apparent distress, alert and restlessly, patient is reporting right upper and lower extremity weakness with no significant improvement compared to admission. Denies any headache, chest pain, shortness of breath, nausea, vomiting, diarrhea, constipation or any urinary symptoms. 04/13/2020. Acute events overnight. Patient currently receiving apparent distress, still complaining of right upper and lower extremity weakness however reporting mild improvement of right upper and lower extremity weakness and numbness, denies any fever, chills, nausea, vomiting, diarrhea, constipation or any urinary symptoms. Reason For Visit: CONVERSION DISORDER WITH WEAKNESS OR PARALYSIS Physical Exam Vital Signs: Temp Pulse Resp BP Pulse Ox 98.0 F 71 17 110/58 L 96 04/12/20 23:27 04/12/20 23:27 04/12/20 23:27 04/12/20 23:27 04/12/20 23:27 Intake & Output 04/12/20 04/13/20 04/14/20 06:59 06:59 06:59 Output Total 0 0 Balance 0 0 Weight 88.7 kg 89.6 kg General appearance: PRESENT: no acute distress, obese, well-developed, well- nourished Head exam: PRESENT: atraumatic, normocephalic Respiratory exam: PRESENT: clear to auscultation arline. ABSENT: rales, rhonchi, wheezes Cardiovascular exam: PRESENT: RRR. ABSENT: diastolic murmur, rubs, systolic murmur GI/Abdominal exam: PRESENT: normal bowel sounds, soft. ABSENT: distended, guarding, mass, organolmegaly, rebound, tenderness Neurological exam: PRESENT: alert, awake, oriented to person, oriented to place, oriented to time, oriented to situation, reflexes normal, CN II-XII grossly intact, motor sensory deficit - Rt UL Ext 3/ Results Laboratory Results: 04/12/20 06:41 04/12/20 06:41 04/12/20 04/12/20 04/12/20 00:39 00:39 06:41 Creatine Kinase 47 L 48 L CK-MB (CK-2) 0.40 Troponin I < 0.012 04/12/20 06:41 Creatine Kinase CK-MB (CK-2) 0.43 Troponin I < 0.012 Impressions: Head CT 04/11/20 14:56 IMPRESSION: NORMAL BRAIN CT WITHOUT CONTRAST. EVIDENCE OF ACUTE STROKE: NO. Chest X-Ray 04/11/20 14:57 IMPRESSION: NO ACUTE RADIOGRAPHIC FINDING IN THE CHEST. Head MRI 04/11/20 17:36 IMPRESSION: NORMAL MRI OF THE BRAIN WITHOUT AND WITH INTRAVENOUS GADOLINIUM CONTRAST. EVIDENCE OF ACUTE STROKE: NO. 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 Given physical examination findings and negative CT and MRI of the head patient unlikely has an acute stroke. Patient has had similar presentation in the past with abrupt resolution of symptoms. These symptoms could be either conversion disorder or malingering. Continue antiplatelets, statins, neurochecks. Monitor for seizure, aspiration precaution and fall precaution. PT OT ST. We will consider psych evaluation if no resolution of symptoms. (2) Chronic pain syndrome Is this a current diagnosis for this admission?: Yes Plan: History of chronic musculoskeletal pain with opioid dependency. Resume home meds. Monitor for respiratory depression and fall. Patient PCP and pain management follow-up. (3) Generalized anxiety disorder Is this a current diagnosis for this admission?: Yes Plan: History of general anxiety and depression. Resume home meds. Monitor for respiratory depression. (4) Tobacco use disorder, continuous Is this a current diagnosis for this admission?: Yes Plan: Counseled on quitting. Continue current patch. (5) Depression Qualifiers: Depression Type: major depressive disorder Is this a current diagnosis for this admission?: Yes Plan: Chronic depression. Denies any suicidal or homicidal ideation. Has been evaluated by psych in the past. Resume home meds. Outpatient psychiatry and PCP follow-up. - Plan Summary Summary: The patient is admitted to the medical floor where he will receive routine supportive and symptomatic cares. A psychiatric consultation will be obtained as soon as possible. Patient will be treated initially with IM olanzapine. And neurologic checks will be performed every hour x4 and then every 4 hours thereafter. He will receive a cardiac diet. CBCs, metabolic profiles, magnesium levels, serial cardiac enzymes, lipid profiles, thyroid profiles and hemoglobin A1c will be obtained as appropriate. Initially patient will receive hydralazine 20 mg IV every 4 hours as needed for control of hypertension with a systolic blood pressure greater than 160 or diastolic blood pressure greater than 100. Smoking cessation is advised and counseled briefly at the bedside. A nicotine replacement patch is available for the patient's use, if desired.
[2020-04-13] MEDS: DIVALPROEX SODIUM 250 MG TABLET.DR PO SCH (12:43)
[2020-04-13] MEDS: OXYCODONE HCL SR 10 MG TABLET PO SCH ×2 (14:55→21:19)
[2020-04-13] MEDS: ATORVASTATIN CALCIUM 40 MG TABLET PO SCH (21:19)
[2020-04-14] MEDS: HEPARIN SOD (PORCINE) 5,000 UNIT/ML 1 ML VIAL SUBCUT SCH ×3 (05:48→23:00)
[2020-04-14] MEDS: OXYCODONE HCL SR 10 MG TABLET PO SCH ×3 (05:55→23:06)
[2020-04-14] MEDS: LORAZEPAM 1 MG TABLET PO PRN ×3 (05:57→23:06)
[2020-04-14] MEDS: DOCUSATE SODIUM 100 MG CAPSULE PO SCH ×2 (09:02→17:46)
[2020-04-14] MEDS: NICOTINE 21 MG/24 HR PATCH.TD24 TD PRN (09:03)
[2020-04-14] MEDS: VENLAFAXINE HCL 75 MG TABLET PO SCH (09:03)
[2020-04-14] MEDS: FAMOTIDINE 20 MG TABLET PO SCH ×2 (09:03→23:06)
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
[2020-04-14] MEDS: DIVALPROEX SODIUM 250 MG TABLET.DR PO SCH (12:30)
[2020-04-14 15:51] LABS: PATH REVIEW PATHOLOGIST REVIEWED
--- NOTE | 2020-04-14 16:11 | PDOC PROGRESS REPORT ---
Subjective Progress Note for:: 04/14/20 Subjective:: HEAVEN FAIRCHILD is a 50 year old male presenting to the emergency room this afternoon with acute complete paralysis and numbness of his right upper and lower extremity. He admits to going to bed on the evening of 04/10/2020 in his usual state of health. He woke at approximately 6 AM this morning and discovered that his entire right side was completely devoid of sensation and he was unable to move his right arm or right leg as they were completely paralyzed. He was discovered in this state by his home health nurse and sent to the hospital via ambulance. He admits prior similar episodes 1 with a stroke in 2019 (treated with TPA) which he indicates today involved his left side and he was left with residual left arm and leg weakness requiring physical therapy. 1 month ago he was seen for a similar complaint with left sided paralysis and numbness and a history of a previous stroke in 2019, involving his right side and requiring post TPA therapy ongoing physical therapy for residual weakness. Transfer to [facility] had been arranged for the patient to have a neurologic evaluation at that time when he had dramatic complete resolution of his symptoms and left the ER AGAINST MEDICAL ADVICE. He admits associated chest discomfort earlier in the day and also has accompanying chronic pain and anxiety for which he takes oxycodone and lorazepam. He has not identified any aggravating or ameliorating factors for his acute paralysis. In the emergency room he was found to have a CT of the head which was negative for acute changes and an MRI of the head which was also negative for evidence of stroke. The strong likelihood of a conversion disorder was discussed with the emergency room physician and the patient was subsequently admitted to the medical service for further evaluation and treatment. 04/12/2020. Patient comfortably resting in bed in no apparent distress, alert and restlessly, patient is reporting right upper and lower extremity weakness with no significant improvement compared to admission. Denies any headache, chest pain, shortness of breath, nausea, vomiting, diarrhea, constipation or any urinary symptoms. 04/13/2020. Acute events overnight. Patient currently receiving apparent distress, still complaining of right upper and lower extremity weakness however reporting mild improvement of right upper and lower extremity weakness and numbness, denies any fever, chills, nausea, vomiting, diarrhea, constipation or any urinary symptoms. 04/12/2020. No acute events overnight. Patient reported mild improvement of right upper extremity weakness, still complaining of right lower extremity weakness, stating that he will be ready to go home tomorrow, denies any acute changes, denies any fever, chills, nausea, vomiting, diarrhea, constipation or any urinary symptoms. Reason For Visit: CONVERSION DISORDER WITH WEAKNESS OR PARALYSIS Physical Exam Vital Signs: Temp Pulse Resp BP Pulse Ox 98.4 F 82 16 110/79 97 04/14/20 12:19 04/14/20 12:19 04/14/20 12:19 04/14/20 12:19 04/14/20 12:19 Intake & Output 04/13/20 04/14/20 04/15/20 06:59 06:59 06:59 Intake Total 693 810 Output Total 0 3200 800 Balance 0 -2507 10 Weight 89.6 kg 90.8 kg General appearance: PRESENT: obese Head exam: PRESENT: atraumatic, normocephalic Respiratory exam: PRESENT: clear to auscultation arline. ABSENT: rales, rhonchi, wheezes Cardiovascular exam: PRESENT: RRR. ABSENT: diastolic murmur, rubs, systolic murmur GI/Abdominal exam: PRESENT: normal bowel sounds, soft. ABSENT: distended, guarding, mass, organolmegaly, rebound, tenderness Extremities exam: PRESENT: full ROM. ABSENT: calf tenderness, clubbing, pedal edema Neurological exam: PRESENT: alert, awake, oriented to person, oriented to place, oriented to time, oriented to situation, reflexes normal, CN II-XII grossly intact, motor sensory deficit - Upper extremity strength 3/4. Left lower extremity strength 2/4. Results Laboratory Results: 04/12/20 06:41 04/12/20 06:41 04/12/20 04/12/20 04/12/20 00:39 00:39 06:41 Creatine Kinase 47 L 48 L CK-MB (CK-2) 0.40 Troponin I < 0.012 04/12/20 06:41 Creatine Kinase CK-MB (CK-2) 0.43 Troponin I < 0.012 Impressions: Head CT 04/11/20 14:56 IMPRESSION: NORMAL BRAIN CT WITHOUT CONTRAST. EVIDENCE OF ACUTE STROKE: NO. Chest X-Ray 04/11/20 14:57 IMPRESSION: NO ACUTE RADIOGRAPHIC FINDING IN THE CHEST. Head MRI 04/11/20 17:36 IMPRESSION: NORMAL MRI OF THE BRAIN WITHOUT AND WITH INTRAVENOUS GADOLINIUM CONTRAST. EVIDENCE OF ACUTE STROKE: NO. 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 Given physical examination findings and negative CT and MRI of the head patient unlikely has an acute stroke. Patient has had similar presentation in the past with abrupt resolution of symptoms. These symptoms could be either conversion disorder or malingering. Continue antiplatelets, statins, neurochecks. Monitor for seizure, aspiration precaution and fall precaution. PT OT ST. Patient has been evaluated by psych department. No recommendations so far. (2) Chronic pain syndrome Is this a current diagnosis for this admission?: Yes Plan: History of chronic musculoskeletal pain with opioid dependency. Resume home meds. Monitor for respiratory depression and fall. Patient PCP and pain management follow-up. (3) Generalized anxiety disorder Is this a current diagnosis for this admission?: Yes Plan: History of general anxiety and depression. Resume home meds. Monitor for respiratory depression. (4) Tobacco use disorder, continuous Is this a current diagnosis for this admission?: Yes Plan: Counseled on quitting. Continue current patch. (5) Depression Qualifiers: Depression Type: major depressive disorder Is this a current diagnosis for this admission?: Yes Plan: Chronic depression. Denies any suicidal or homicidal ideation. Has been evaluated by psych in the past. Resume home meds. Outpatient psychiatry and PCP follow-up. - Plan Summary Summary: The patient is admitted to the medical floor where he will receive routine supportive and symptomatic cares. A psychiatric consultation will be obtained as soon as possible. Patient will be treated initially with IM olanzapine. And neurologic checks will be performed every hour x4 and then every 4 hours thereafter. He will receive a cardiac diet. CBCs, metabolic profiles, magnesium levels, serial cardiac enzymes, lipid profiles, thyroid profiles and hemoglobin A1c will be obtained as appropriate. Initially patient will receive hydralazine 20 mg IV every 4 hours as needed for control of hypertension with a systolic blood pressure greater than 160 or diastolic blood pressure greater than 100. Smoking cessation is advised and counseled briefly at the bedside. A nicotine replacement patch is available for the patient's use, if desired.
[2020-04-14] MEDS: ATORVASTATIN CALCIUM 40 MG TABLET PO SCH (23:06)
[2020-04-15] MEDS: HEPARIN SOD (PORCINE) 5,000 UNIT/ML 1 ML VIAL SUBCUT SCH ×2 (06:03→13:30)
[2020-04-15] MEDS: OXYCODONE HCL SR 10 MG TABLET PO SCH ×2 (06:36→13:33)
[2020-04-15] MEDS: LORAZEPAM 1 MG TABLET PO PRN (09:01)
[2020-04-15] MEDS: DOCUSATE SODIUM 100 MG CAPSULE PO SCH (09:01)
[2020-04-15] MEDS: FAMOTIDINE 20 MG TABLET PO SCH (09:01)
[2020-04-15] MEDS: VENLAFAXINE HCL 75 MG TABLET PO SCH (09:01)
[2020-04-15] MEDS: NICOTINE 21 MG/24 HR PATCH.TD24 TD PRN (09:01)
[2020-04-15] MEDS: DIVALPROEX SODIUM 250 MG TABLET.DR PO SCH (13:33)
[2020-04-15 16:10] VITALS: BP 130/92
--- NOTE | 2020-04-15 16:44 | PDOC DISCHARGE SUMMARY ---
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 A psychiatric consultation will be obtained as soon as possible. Patient will be treated initially with IM olanzapine. And neurologic checks will be performed every hour x4 and then every 4 hours thereafter. He will receive a cardiac diet. CBCs, metabolic profiles, magnesium levels, serial cardiac enzymes, lipid profiles, thyroid profiles and hemoglobin A1c will be obtained as appropriate. Initially patient will receive hydralazine 20 mg IV every 4 hours as needed for control of hypertension with a systolic blood pressure greater than 160 or diastolic blood pressure greater than 100. Smoking cessation is advised and counseled briefly at the bedside. A nicotine replacement patch is available for the patient's use, if desired. - Additional Information Resuscitation Status: Full Code Referrals: [facility] [place]UL[place] [Other] - 04/16/20 11:00 am (WITH MERI TIPTON) Home Medications: Venlafaxine HCl [Effexor 75 mg Tablet] 75 mg PO DAILY #10 tab 03/28/20 Lorazepam [Ativan 1 mg Tablet] 1 mg PO Q8HP PRN 04/12/20 Oxycodone HCl [Oxycontin] 30 mg PO Q12 04/12/20 Zolpidem Tartrate [Ambien] 10 mg PO DAILY 04/12/20 History of Present Illiness History of Present Illness: As per admitting physicians HEAVEN FAIRCHILD is a 50 year old male presenting to the emergency room this afternoon with acute complete paralysis and numbness of his right upper and lower extremity. He admits to going to bed on the evening of 04/10/2020 in his usual state of health. He woke at approximately 6 AM this morning and discovered that his entire right side was completely devoid of sensation and he was unable to move his right arm or right leg as they were completely paralyzed. He was discovered in this state by his home health nurse and sent to the hospital via ambulance. He admits prior similar episodes 1 with a stroke in 2019 (treated with TPA) which he indicates today involved his left side and he was left with residual left arm and leg weakness requiring physical therapy. 1 month ago he was seen for a similar complaint with left sided paralysis and numbness and a history of a previous stroke in 2019, involving his right side and requiring post TPA therapy ongoing physical therapy for residual weakness. Transfer to [facility] had been arranged for the patient to have a neurologic evaluation at that time when he had dramatic complete resolution of his symptoms and left the ER AGAINST MEDICAL ADVICE. He admits associated chest discomfort earlier in the day and also has accompanying chronic pain and anxiety for which he takes oxycodone and lorazepam. He has not identified any aggravating or ameliorating factors for his acute paralysis. In the emergency room he was found to have a CT of the head which was negative for acute changes and an MRI of the head which was also negative for evidence of stroke. The strong likelihood of a conversion disorder was discussed with the emergency room physician and the patient was subsequently admitted to the medical service for further evaluation and treatment. 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 Given physical examination findings and negative CT and MRI of the head patient unlikely has an acute stroke. Patient has had similar presentation in the past with abrupt resolution of symptoms. These symptoms could be either conversion disorder or malingering. Admitted to [facility] and started on antiplatelets, statins, neurochecks. Seizure, aspiration and fall precautions were implemented. PT OT consulted. Recommendation was to continue PT OT upon discharge. Patient has been evaluated by psych department. Please refer to note. Patient was discharged home on home health, home PT and home OT. Refer to OT PT note. Patient was advised to resume her home meds upon discharge. (2) Chronic pain syndrome History of chronic musculoskeletal pain with opioid dependency. Resumed home meds. Monitored for respiratory depression and fall. Advised to follow-up with PCPand pain management follow-up. (3) Generalized anxiety disorder History of general anxiety and depression. Resumed home meds. Monitored for respiratory depression. (4) Tobacco use disorder, continuous Counseled on quitting. NicoDerm patch provided. (5) Depression Chronic depression. Denied any suicidal or homicidal ideation. Restart home meds. Advised to follow-up with PCP and psychiatry. Physical Exam Vital Signs: Temp Pulse Resp BP Pulse Ox 98.6 F 89 16 130/92 H 96 04/15/20 16:06 04/15/20 16:06 04/15/20 16:06 04/15/20 16:06 04/15/20 16:06 Intake & Output 04/14/20 04/15/20 04/16/20 06:59 06:59 06:59 Intake Total 693 3050 480 Output Total 3200 4765 800 Balance -5257 -915 -320 Weight 90.8 kg 91.7 kg General appearance: PRESENT: no acute distress, well-developed, well-nourished Head exam: PRESENT: atraumatic, normocephalic Respiratory exam: PRESENT: clear to auscultation arline. ABSENT: rales, rhonchi, wheezes Cardiovascular exam: PRESENT: RRR. ABSENT: diastolic murmur, rubs, systolic murmur GI/Abdominal exam: PRESENT: normal bowel sounds, soft. ABSENT: distended, guarding, mass, organolmegaly, rebound, tenderness Neurological exam: PRESENT: alert, awake, oriented to person, oriented to place, oriented to time, oriented to situation, CN II-XII grossly intact, motor sensory deficit - Right upper extremity strength 4/5. Right lower extremity strength 3/5. Results Laboratory Results: WBC 9.5 10^3/uL (4.0-10.5) 04/12/20 06:41 RBC 5.47 10^6/uL (4.35-5.55) 04/12/20 06:41 Hgb 11.1 g/dL (13.5-17.0) L 04/12/20 06:41 Hct 34.1 % (37.9-51.0) L 04/12/20 06:41 MCV 62 fl (80-97) L 04/12/20 06:41 MCH 20.2 pg (27.0-33.4) L 04/12/20 06:41 MCHC 32.4 g/dL (32.0-36.0) 04/12/20 06:41 RDW 16.4 % (11.5-14.0) H 04/12/20 06:41 Plt Count 391 10^3/uL (150-450) 04/12/20 06:41 Lymph % (Auto) 19.9 % (13-45) 04/11/20 15:45 Edwards % (Auto) 4.7 % (3-13) 04/11/20 15:45 Eos % (Auto) 0.1 % (0-6) 04/11/20 15:45 Baso % (Auto) 0.5 % (0-2) 04/11/20 15:45 Absolute Neuts (auto) 9.1 10^3/uL (1.7-8.2) H 04/11/20 15:45 Absolute Lymphs (auto) 2.4 10^3/uL (0.5-4.7) 04/11/20 15:45 Absolute Monos (auto) 0.6 10^3/uL (0.1-1.4) 04/11/20 15:45 Absolute Eos (auto) 0.0 10^3/uL (0.0-0.6) 04/11/20 15:45 Absolute Basos (auto) 0.1 10^3/uL (0.0-0.2) 04/11/20 15:45 Seg Neutrophils % 74.8 % (42-78) 04/11/20 15:45 Platelet Estimate Cancelled 04/11/20 15:20 Platelet Comment ADEQUATE 04/11/20 15:45 Polychromasia 1+ 04/11/20 15:45 Hypochromasia SLIGHT 04/11/20 15:45 Poikilocytosis 1+ 04/11/20 15:45 Anisocytosis 1+ 04/11/20 15:45 Microcytosis 3+ 04/11/20 15:45 Target Cells 1+ 04/11/20 15:45 Ovalocytes SLIGHT 04/11/20 15:45 PT 14.1 SEC (11.4-15.4) 04/11/20 16:25 INR 1.09 04/11/20 16:25 INR (Anticoag Therapy) Cancelled 04/11/20 15:20 APTT 26.9 SEC (23.5-35.8) 04/11/20 16:25 Sodium 139.8 mmol/L (137-145) 04/12/20 06:41 Potassium 3.9 mmol/L (3.6-5.0) 04/12/20 06:41 Chloride 107 mmol/L (98-107) 04/12/20 06:41 Carbon Dioxide 23 mmol/L (22-30) 04/12/20 06:41 Anion Gap 10 (5-19) 04/12/20 06:41 BUN 12 mg/dL (7-20) 04/12/20 06:41 Creatinine 0.63 mg/dL (0.52-1.25) 04/12/20 06:41 Est GFR ( Amer) > 60 (>60) 04/12/20 06:41 Est GFR (MDRD) Non-Af > 60 (>60) 04/12/20 06:41 Glucose 142 mg/dL (75-110) H 04/12/20 06:41 Hemoglobin A1c % 5.3 % (4.7-6.0) 04/12/20 06:41 Calcium 9.6 mg/dL (8.4-10.2) 04/12/20 06:41 Magnesium 1.7 mg/dL (1.6-2.3) 04/12/20 06:41 Total Bilirubin 0.9 mg/dL (0.2-1.3) 04/12/20 06:41 Direct Bilirubin 0.0 mg/dL (0.0-0.4) 04/12/20 06:41 Neonat Total Bilirubin Not Reportable 04/12/20 06:41 Neonat Direct Bilirubin Not Reportable 04/12/20 06:41 Neonat Indirect Bili Not Reportable 04/12/20 06:41 AST 29 U/L (17-59) 04/12/20 06:41 ALT 28 U/L (<50) 04/12/20 06:41 Alkaline Phosphatase 85 U/L (38-126) 04/12/20 06:41 Creatine Kinase 48 U/L (55-170) L 04/12/20 06:41 CK-MB (CK-2) 0.43 ng/mL (<4.55) 04/12/20 06:41 Troponin I < 0.012 ng/mL 04/12/20 06:41 Total Protein 7.2 g/dL (6.3-8.2) 04/12/20 06:41 Albumin 4.3 g/dL (3.5-5.0) 04/12/20 06:41 Triglycerides 129 mg/dL (<150) 04/12/20 06:41 Cholesterol 146.92 mg/dL (0-200) 04/12/20 06:41 LDL Cholesterol Direct 96 mg/dL (<100) 04/12/20 06:41 VLDL Cholesterol 26.0 mg/dL (10-31) 04/12/20 06:41 HDL Cholesterol 27 mg/dL (>40) L 04/12/20 06:41 TSH 0.04 uIU/mL (0.47-4.68) L 04/12/20 06:41 Slides for Path Review PATHOLOGIST REVIEWED 04/11/20 15:45 04/12/20 04/12/20 00:39 06:41 CK-MB (CK-2) 0.40 0.43 Troponin I < 0.012 < 0.012 Impressions: Head CT 04/11/20 14:56 IMPRESSION: NORMAL BRAIN CT WITHOUT CONTRAST. EVIDENCE OF ACUTE STROKE: NO. Chest X-Ray 04/11/20 14:57 IMPRESSION: NO ACUTE RADIOGRAPHIC FINDING IN THE CHEST. Head MRI 04/11/20 17:36 IMPRESSION: NORMAL MRI OF THE BRAIN WITHOUT AND WITH INTRAVENOUS GADOLINIUM CONTRAST. EVIDENCE OF ACUTE STROKE: NO. Stroke Is this a Stroke Patient?: No Acute Heart Failure - Is this a Heart Failure Patient?: No
== END 2020-04-15 18:17 | disposition home or self-care (01) ==
LOC: ER 14:40 → INTOOBSV 23:33 → EH 23:33 → 4N 04-12 02:00
PROVIDERS: ADMIT Emergency Medicine; ATTEND Internal Medicine
DX: F19.20 Other psychoactive substance dependence, uncomplicated (principal); Z76.5 Malingerer [conscious simulation]; R20.0 Anesthesia of skin; R53.1 Weakness; F32.89 Other specified depressive episodes; F44.6 Conversion disorder with sensory symptom or deficit; F32.9 Major depressive disorder, single episode, unspecified; G89.4 Chronic pain syndrome; F41.1 Generalized anxiety disorder; E11.9 Type 2 diabetes mellitus without complications; Z79.899 Other long term (current) drug therapy; E78.5 Hyperlipidemia, unspecified; I10 Essential (primary) hypertension; Z86.73 Personal history of transient ischemic attack (TIA), and cerebral infarction without residual deficits; Z87.891 Personal history of nicotine dependence
CPT/HCPCS: 93005; 96376; 99285; 96374; 96375; 36415 ×2; 82553; 82550; 83735; 84443; 85025; 85027; 85610; 85730; 80053 ×2; 84484; 83036; 80061; 70553; 71045; 70450; 93010; 97530 ×2; 97163; 97167; J2250; A9270 ×24; J1885; J2060; J3490

== ENCOUNTER 2020-04-28 18:19 | Emergency (ER) | payer MEDICARE, MEDICAID ==
[2020-04-28] MEDS ORDERED: ASPIRIN 81 MG TABLET, CHEWABLE PO ONE (19:12)
--- NOTE | 2020-04-28 19:49 | RADIOLOGY REPORT (SQ) ---
EXAM DESCRIPTION: CT HEAD WITHOUT IMAGES COMPLETED DATE/TIME: 04/28/2020 7:27 pm REASON FOR STUDY: Left-sided weakness previous stroke COMPARISON: MR 04/11/2020 CT 04/11/2020 TECHNIQUE: Axial images acquired through the brain without intravenous contrast. Images reviewed wi th bone, brain and subdural windows. Additional sagittal and coronal reconstructions were generated. Images stored on PACS. All CT scanners at this facility use dose modulation, iterative reconstruction, and/or weight based d osing when appropriate to reduce radiation dose to as low as reasonably achievable (ALARA). [facility]: Dose Right [facility]: CareDose [facility]: Dose Right [facility]: Teradose 4D [facility]: Smart Markr RADIATION DOSE: CT Rad equipment meets quality standard of care and radiation dose reduction techniq ues were employed. CTDIvol: 53.2 mGy. DLP: 1017 mGy-cm. mGy. LIMITATIONS: None. FINDINGS: VENTRICLES: Normal size and contour. CEREBRUM: No masses. No hemorrhage. No midline shift. No evidence for acute infarction. Normal gra y/white matter differentiation. No areas of low density in the white matter. CEREBELLUM: No masses. No hemorrhage. No alteration of density. No evidence for acute infarction. EXTRAAXIAL SPACES: No fluid collections. No masses. ORBITS AND GLOBE: No intra- or extraconal masses. Normal contour of globe without masses. CALVARIUM: No fracture. PARANASAL SINUSES: No fluid or mucosal thickening. SOFT TISSUES: No mass or hematoma. OTHER: No other significant finding. IMPRESSION: NORMAL BRAIN CT WITHOUT CONTRAST. EVIDENCE OF ACUTE STROKE: NO. COMMENT: Quality ID # [id number]: Final reports with documentation of one or more dose reduction techniques (e.g., Automated exposure control, adjustment of the mA and/or kV according to patient size, use of iterative reconstruction technique) TECHNICAL DOCUMENTATION: JOB ID: [id number] 2010 [employer]- All Rights Reserved Reading location - IP/workstation name: [email or web address]
--- NOTE | 2020-04-28 19:53 | RADIOLOGY REPORT (SQ) ---
EXAM DESCRIPTION: CHEST 2 VIEWS IMAGES COMPLETED DATE/TIME: 04/28/2020 7:30 pm REASON FOR STUDY: Chest pain COMPARISON: None. EXAM PARAMETERS: NUMBER OF VIEWS: two views TECHNIQUE: Digital Frontal and Lateral radiographic views of the chest acquired. RADIATION DOSE: NA LIMITATIONS: none FINDINGS: LUNGS AND PLEURA: No opacities, masses or pneumothorax. No pleural effusion. MEDIASTINUM AND HILAR STRUCTURES: No masses or contour abnormalities. HEART AND VASCULAR STRUCTURES: Heart normal size. No evidence for failure. BONES: No acute findings. HARDWARE: None in the chest. OTHER: No other significant finding. IMPRESSION: NO ACUTE RADIOGRAPHIC FINDING IN THE CHEST. TECHNICAL DOCUMENTATION: JOB ID: [id number] 2010 [employer]- All Rights Reserved Reading location - IP/workstation name: [email or web address]
[2020-04-28 20:58] LABS: ABSOLUTE BASOPHILS # (AUTO) 0.1 10^3/uL (0.0-0.2); ABSOLUTE LYMPHOCYTES (AUTO) 2.4 10^3/uL (0.5-4.7); ABSOLUTE MONOCYTES (AUTO) 0.5 10^3/uL (0.1-1.4); ABSOLUTE NEUT (AUTO) 9.5 10^3/uL (1.7-8.2); BASOPHILS % (AUTO) 0.8 % (0-2); EOSINOPHILS % (AUTO) 0.1 % (0-6); HEMATOCRIT 41.7 % (37.9-51.0); HEMOGLOBIN 13.6 g/dL (13.5-17.0); LYMPHOCYTES % (AUTO) 19.2 % (13-45); MEAN CORPUSCULAR HEMOGLOBIN 20.4 pg (27.0-33.4); MEAN CORPUSCULAR HGB CONC 32.7 g/dL (32.0-36.0); MONOCYTES % (AUTO) 4.2 % (3-13); PLATELET COUNT 365 10^3/uL (150-450); RED BLOOD COUNT 6.69 10^6/uL (4.35-5.55); RED CELL DISTRIBUTION WIDTH 16.3 % (11.5-14.0); SEGMENTED NEUTROPHILS % (AUTO) 75.7 % (42-78); TOTAL CELLS COUNTED % (AUTO) 100 %; WHITE BLOOD COUNT 12.5 10^3/uL (4.0-10.5)
[2020-04-28 21:10] LABS: INTERNATIONAL RATION (INR) 1.13; PROTHROMBIN TIME 14.5 SEC (11.4-15.4)
[2020-04-28 21:18] LABS: ALBUMIN 5.2 g/dL (3.5-5.0); ALKALINE PHOSPHATASE 114 U/L (38-126); ANION GAP 11 (5-19); ASPARTATE AMINO TRANSFERASE 32 U/L (17-59); BILIRUBIN,DIRECT 0.1 mg/dL (0.0-0.4); BILIRUBIN,TOTAL 1.2 mg/dL (0.2-1.3); BLOOD UREA NITROGEN 14 mg/dL (7-20); CALCIUM 10.6 mg/dL (8.4-10.2); CARBON DIOXIDE 26 mmol/L (22-30); CHLORIDE 101 mmol/L (98-107); CREATINE KINASE 40 U/L (55-170); GLUCOSE 112 mg/dL (75-110); POTASSIUM 3.9 mmol/L (3.6-5.0); TOTAL PROTEIN 8.8 g/dL (6.3-8.2)
[2020-04-28 21:23] LABS: ANISOCYTOSIS 1+; HYPOCHROMASIA 3+
[2020-04-28 21:24] LABS: PLATELET COMMENT ADEQUATE
[2020-04-28 21:25] LABS: OVALOCYTES 1+; POLYCHROMASIA SLIGHT; TARGET CELLS 1+
[2020-04-28 21:27] LABS: MEAN CORPUSCULAR VOLUME 62 fl (80-97)
[2020-04-28 21:29] LABS: NT PRO BNP 45 pg/mL (<125)
[2020-04-28 21:36] LABS: TROPONIN I < 0.012 ng/mL
--- NOTE | 2020-04-28 21:47 | EKG REPORT ---
SEVERITY:- OTHERWISE NORMAL ECG - SINUS TACHYCARDIA BORDERLINE RIGHT AXIS DEVIATION : Confirmed by: Marques Martinez MD 28-Apr-2020 21:46:01
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
[2020-04-28] MEDS ORDERED: NORMAL SALINE 500 ML IV ONE (22:12)
[2020-04-28] MEDS ORDERED: MORPHINE SULFATE 10 MG/ML INJ IV ONE (22:14)
[2020-04-28] MEDS ORDERED: LORAZEPAM 1 MG TABLET PO ONE (22:14)
[2020-04-29] MEDS ORDERED: HALOPERIDOL LACTATE INJ 5 MG/1 ML VIAL IM ONE (02:12)
[2020-04-29 02:39] LABS: ACETAMINOPHEN < 10 ug/mL (10-30); ALCOHOL < 10 mg/dL (NONE DETECTED); SALICYLATE < 1.0 mg/dL (2.0-20.0)
[2020-04-29 13:06] LABS: PATH REVIEW PATHOLOGIST REVIEWED
--- NOTE | 2020-04-29 13:34 | ER Document Report ---
Doctor's Note Notes: 04/29/20 13:32 Patient's vital signs are previous labs, diagnostic imaging reviewed. Reviewed mental health notes, nurses notes and previous vital signs. Patient is in no distress at this time denies any SI or HI. States he has not been on his medication. States that he takes Effexor for depression and oxy for his chronic low back pain. States he does not have any complaints at this time. He will try to provide us a urine sample this time. He was previously cathed but they were unable to get any urine from him. States that they felt like there was an obstruction. Bladder scan showed he had 158 cc of urine. I discussed with patient that he will need to try to provide us a urine sample and if he is unable to I will evaluate him in order imaging for obstruction General: Alert, oriented Heart: Regular rate rhythm Lungs: Clear to auscultation bilaterally Psych: Normal affect A&P: Pending placement and mental health eval
[2020-04-29 14:04] LABS: APPEARANCE,URINE SLIGHTLY-CLOUDY; BILIRUBIN,URINE SMALL (NEGATIVE); GLUCOSE, URINE NEGATIVE (NEGATIVE); KETONES,URINE NEGATIVE (NEGATIVE); LEUKOCYTE ESTERASE,URINE NEGATIVE (NEGATIVE); NITRITE,URINE NEGATIVE (NEGATIVE); PROTEIN,URINE 30 mg/dL (NEGATIVE); URINE SPECIFIC GRAVITY 1.026
[2020-04-29 14:05] LABS: COLOR,URINE DARK YELLOW
[2020-04-29 14:16] LABS: URINE AMPHETAMINES SCREEN NEGATIVE; URINE BARBITURATES SCREEN NEGATIVE; URINE BENZODIAZEPINES SCREEN NEGATIVE; URINE COCAINE SCREEN NEGATIVE; URINE MARIJUANA (THC) SCREEN NEGATIVE; URINE METHADONE SCREEN NEGATIVE; URINE PHENCYCLIDINE SCREEN NEGATIVE
--- NOTE | 2020-04-29 14:46 | RADIOLOGY REPORT (SQ) ---
EXAM DESCRIPTION: CT ABD/PELVIS NO ORAL OR IV IMAGES COMPLETED DATE/TIME: 04/29/2020 2:06 pm REASON FOR STUDY: concern for urethral obstruction COMPARISON: None. TECHNIQUE: CT scan of the abdomen and pelvis performed without intravenous or oral contrast. Images reviewed with lung, soft tissue, and bone windows. Reconstructed coronal and sagittal MPR images revi ewed. All images stored on PACS. All CT scanners at this facility use dose modulation, iterative reconstruction, and/or weight based d osing when appropriate to reduce radiation dose to as low as reasonably achievable (ALARA). [facility]: Dose Right [facility]: CareDose [facility]: Dose Right [facility]: Teradose 4D [facility]: Smart [employer] RADIATION DOSE: CT Rad equipment meets quality standard of care and radiation dose reduction techniq ues were employed. CTDIvol: 10.6 mGy. DLP: 622 mGy-cm.mGy. LIMITATIONS: None. FINDINGS: LOWER CHEST: No significant findings. No nodules or infiltrates. NON-CONTRASTED LIVER, SPLEEN, ADRENALS: Evaluation limited by lack of IV contrast. No identified sign ificant masses. PANCREAS: No masses. No peripancreatic inflammatory changes. GALLBLADDER: No identified stones by CT criteria. No inflammatory changes to suggest cholecystitis. RIGHT KIDNEY AND URETER: No suspicious masses. Assessment limited by lack of IV contrast. No signif icant calcifications. No hydronephrosis or hydroureter. LEFT KIDNEY AND URETER: No suspicious masses. Assessment limited by lack of IV contrast. No signifi cant calcifications. No hydronephrosis or hydroureter. AORTA AND RETROPERITONEUM: No aneurysm. No retroperitoneal masses or adenopathy. BOWEL AND PERITONEAL CAVITY: No obvious mass or inflammatory changes. There is considerable dense st ool in the rectum. APPENDIX: Not identified. PELVIS, BLADDER, AND ABDOMINAL WALL:Dense stool in the rectum. Urinary bladder is not filled. No pe lvic mass. BONES: No significant findings. OTHER: No other significant finding. IMPRESSION: Cannot exclude fecal impaction. No other significant finding. COMMENT: Quality ID # [id number]: Final reports with documentation of one or more dose reduction techniques (e.g., Automated exposure control, adjustment of the mA and/or kV according to patient size, use of iterative reconstruction technique) TECHNICAL DOCUMENTATION: JOB ID: [id number] 2010 [employer]- All Rights Reserved Reading location - IP/workstation name: [email or web address]
--- NOTE | 2020-04-29 15:09 | PSYCHOLOGICAL NOTE ---
Psych Note - Psych Note Date seen by psych provider: 04/29/20 Time seen by psych provider: 12:40 Psych Note: Patient was evaluated 04/13/[address] Morales Review of the [facility] reveals the Patient is prescribed OxyCONTIN ER 30 mg twice daily, Lorazepam 1 mg 3 times daily, and OxyCODONE HCL 5 mg 3 times daily. This medication schedule is recent where in December he was receiving OxyCONTIN ER 20 mg daily, OxyCONTIN ER 30 mg daily, OxyCODONE 5 mg 3 times, and Ativan 3 times daily. Thus, it would appear the Patient's opioid intake recently increased. Patient is noted to have 7 different providers and multiple prescriptions since Oct 24, 2019: Fentanyl 50 mcg and Fentanyl 12 mcg patches, Alprazolam 1mg QID, OxyCONTIN Er 20 mg QD, OxyCONTIN 30 mg BID, OxyCODONE HCL 5 mg TID-QID, and Lorazepam 1mg and 2 mg TID. The Physicians range from [facility] to [place], to [facility]. However, since Oct 24, 2018 he has had 11 providers, 64 prescriptions and 7 different pharmacies ranging from [facility], [facility], [facility], [place], [place], and [place]. Clinical Impression Polysubstance Dependence Opioid Induced Depression Drug Seeking Behavior Personality Disorder NOS Impression: Patient is clear from acute psychiatric services. Patient presents and complains about having paralysis and parathesia to the right side of his body, however, throughout the evaluation, Patient was observed to volitionally move both his upper and lower right extremity, as well as his left lower extremity when focused on this provider and his anger, particularly when he thought his medications were going to be changed. Patient was most animated when discussing his medications and when discussing that his reported symptoms did not appear to have a medical explanation at this time, and they were more likely stemming from inside his head. Patient was not receptive to alternative theories or interventions despite this provider having a good rapport with the Patient. Patient admitted to feeling depressed but refused medication stating "none of it works except what I am taking now." When challenged about this thought, that it was not really working or he would not likely be sitting in the hospital, Patient quickly retorted, "I'm here for my pain, not my head." When asked what pain? especially since he stated his medications are reportedly working per his report, Patient would not answer. Patient admitted to leaving physical rehab early because he thought he was better but reportedly now "realize I am not better." Review of the [facility] reveals Patient has been to the doctor for his narcotic medication multiple times since he left rehab which is consistent with his pattern of attending doctor appointments. This, it is believed the Patient is not experiencing a conversion disorder, rather he is seeking sympathy and socialization, as well as medications to mask his depression and what he perceives or wants to perceive as pain. He is not receptive to counseling, non- addictive medications or changes, or open to even thinking differently despite him verbally stating he is. He was provided with a list of resources and encouraged to talk with his physicians to begin weaning him off the pain medica tions as long-term and / or high dose use can cause depression and suicidality. He was also encouraged to consider discontinuing the benzodiazepines as they are not indicated for long-term treatment of anxiety and he may be better suited for an anti-depressant (of which he also refused.) 04/29/2020 Reason for Consult: Suicidal ideation Today patient reports passive suicidal ideation ie no plans means or intent. He confirms he has not followed up with outpatient mental health for therapy. Patient disclosed that he came to [facility] because of his bad thoughts and chest pain. He confirms he called EMS. Patient states that his thoughts were "that I did not want to live anymore." Patient is very vague and is unable to identify any trigger other than stating "I live by myself and there is a lot of things I cannot do." Patient denies having any plan. Patient states 3 months ago he cut his wrists and was inpatient at [facility]. patient states he did not follow-up with outpatient mental health services; "I am by myself how they expect me to do anything I have no transportation... No I do not remember who I was supposed to follow-up with." When asked what his psychiatric medications are he states Ativan. Patient is reminded Ativan is a narcotic and is asked if he is on any other antipsychotics or antidepressants. Patient states that he takes Effexor 75 mg 3 times daily. Patient is asked any other medications he can remember that he takes he states Ativan 1 mg 3 times daily, OxyContin 30 mg twice daily Atorvastatin 40 mg nightly and lisinopril 20 mg daily. Patient states that he has degenerative disc disease but no other medical concerns. Patient states he is diagnosed with depression but denies any family history. Patient reports that his PCM has been prescribing all of his medications to include his Effexor. Chart review indicates the patient is prescribed Oxycontin 30mg twice daily Ambien 10mg at bedtime Effexor 75mg daily Lorazepam 1mg three times a day as needed visteral 50mg daily Divalproex 250mg twice daily Lisinppril 20mg daily Atorvastatin 40mg at bedtime Clinical Impression: Passive suicidal ideation ie no plan means or intent Drug seeking behaviors Unspecified Personality disorder Impression/Plan:Patient is cleared from acute psychiatric services. Dr. Morales was consulted on the care and management of this patient
--- NOTE | 2020-04-29 16:09 | ER Document Report ---
Doctor's Note Notes: 04/29/20 16:03 I was notified that patient is cleared by mental health. He complains of just generalized not feeling well but his physical exam and labs have been unremarkable. His CT scan shows stool in the rectum. Otherwise is unremarkable. Vital signs are stable. He remains afebrile and not tachycardic. I will discharge patient. He follows up with his primary care provider soon as possible. Also recommend he follows up with his mental provider for continued treatment. He is medically cleared. Discussed with patient as he is to continue states that he is suicidal ideations. But he has no active plan or intent. I discussed with Magno with mental health and reports that he has passive suicidal ideations with no active plans or intent and he needs to have close follow-up with his mental health provider and has no active plan or intent.
[2020-04-29 16:57] VITALS: BP 125/80
== END 2020-04-29 16:57 | disposition home or self-care (01) ==
LOC: ER 18:19
DX: R45.851 Suicidal ideations (principal); R07.9 Chest pain, unspecified; R63.0 Anorexia; R20.0 Anesthesia of skin; M62.81 Muscle weakness (generalized); M54.5 Low back pain; G89.29 Other chronic pain; F41.9 Anxiety disorder, unspecified; F17.200 Nicotine dependence, unspecified, uncomplicated; E78.5 Hyperlipidemia, unspecified; I10 Essential (primary) hypertension; E11.9 Type 2 diabetes mellitus without complications
CPT/HCPCS: 93005; 99285; 96372; 96361; 96374; 36415; 80307 ×4; 82550; 83735; 85025; 85610; 80053; 81001; 84484; 80164; 83880; 71046; 70450; 74176; 93010; J1630; J2270; A9270; J7040

== ENCOUNTER 2020-05-01 23:13 | Emergency (ER) | payer MEDICARE, MEDICAID ==
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
[2020-05-02 01:15] LABS: ABSOLUTE BASOPHILS # (AUTO) 0.1 10^3/uL (0.0-0.2); ABSOLUTE EOSINOPHILS # (AUTO) 0.1 10^3/uL (0.0-0.6); ABSOLUTE LYMPHOCYTES (AUTO) 4.2 10^3/uL (0.5-4.7); ABSOLUTE MONOCYTES (AUTO) 0.5 10^3/uL (0.1-1.4); ABSOLUTE NEUT (AUTO) 5.5 10^3/uL (1.7-8.2); BASOPHILS % (AUTO) 0.5 % (0-2); EOSINOPHILS % (AUTO) 1.4 % (0-6); HEMATOCRIT 39.6 % (37.9-51.0); LYMPHOCYTES % (AUTO) 40.3 % (13-45); MEAN CORPUSCULAR HEMOGLOBIN 20.3 pg (27.0-33.4); MEAN CORPUSCULAR HGB CONC 32.9 g/dL (32.0-36.0); MONOCYTES % (AUTO) 5.2 % (3-13); PLATELET COUNT 293 10^3/uL (150-450); RED BLOOD COUNT 6.41 10^6/uL (4.35-5.55); RED CELL DISTRIBUTION WIDTH 16.2 % (11.5-14.0); SEGMENTED NEUTROPHILS % (AUTO) 52.6 % (42-78); TOTAL CELLS COUNTED % (AUTO) 100 %; WHITE BLOOD COUNT 10.5 10^3/uL (4.0-10.5)
[2020-05-02 01:27] LABS: ALBUMIN 4.7 g/dL (3.5-5.0); ALKALINE PHOSPHATASE 93 U/L (38-126); ANION GAP 10 (5-19); ASPARTATE AMINO TRANSFERASE 39 U/L (17-59); BILIRUBIN,TOTAL 1.4 mg/dL (0.2-1.3); BLOOD UREA NITROGEN 12 mg/dL (7-20); CALCIUM 9.9 mg/dL (8.4-10.2); CARBON DIOXIDE 23 mmol/L (22-30); CHLORIDE 105 mmol/L (98-107); GLUCOSE 93 mg/dL (75-110); POTASSIUM 3.4 mmol/L (3.6-5.0); TOTAL PROTEIN 7.8 g/dL (6.3-8.2)
[2020-05-02 01:28] LABS: ACETAMINOPHEN < 10 ug/mL (10-30); ALCOHOL < 10 mg/dL (NONE DETECTED); SALICYLATE < 1.0 mg/dL (2.0-20.0)
[2020-05-02 01:33] LABS: APPEARANCE,URINE SLIGHTLY-CLOUDY; BILIRUBIN,URINE NEGATIVE (NEGATIVE); GLUCOSE, URINE NEGATIVE (NEGATIVE); KETONES,URINE NEGATIVE (NEGATIVE); LEUKOCYTE ESTERASE,URINE MODERATE (NEGATIVE); NITRITE,URINE NEGATIVE (NEGATIVE); PROTEIN,URINE NEGATIVE (NEGATIVE); UROBILINOGEN,URINE NEGATIVE mg/dL (<2.0)
[2020-05-02 01:34] LABS: COLOR,URINE COLORLESS
[2020-05-02 01:39] LABS: MEAN CORPUSCULAR VOLUME 62 fl (80-97)
[2020-05-02 01:43] LABS: ANISOCYTOSIS 1+
[2020-05-02 01:44] LABS: PLATELET COMMENT ADEQUATE
[2020-05-02 01:45] LABS: HYPOCHROMASIA 2+; OVALOCYTES 1+
[2020-05-02 01:46] LABS: POLYCHROMASIA SLIGHT
[2020-05-02] MEDS ORDERED: NITROFURANTOIN MONOHYD/M-CRYST 100 MG CAPSULE PO ONE ×2 (01:59→09:00)
[2020-05-02 02:31] LABS: URINE AMPHETAMINES SCREEN NEGATIVE; URINE BARBITURATES SCREEN NEGATIVE; URINE BENZODIAZEPINES SCREEN NEGATIVE; URINE COCAINE SCREEN NEGATIVE; URINE MARIJUANA (THC) SCREEN NEGATIVE; URINE METHADONE SCREEN NEGATIVE; URINE PHENCYCLIDINE SCREEN NEGATIVE
[2020-05-02] MEDS ORDERED: LORAZEPAM 1 MG TABLET PO PRN (03:06)
--- NOTE | 2020-05-02 07:47 | EKG REPORT ---
SEVERITY:- NORMAL ECG - SINUS RHYTHM : Confirmed by: Marques Martinez MD 02-May-2020 07:46:42
[2020-05-02] MEDS ORDERED: OXYCODONE HCL SR 10 MG TABLET PO SCH (10:00)
[2020-05-02] MEDS ORDERED: LISINOPRIL 10 MG TABLET PO SCH (10:00)
[2020-05-02] MEDS ORDERED: VENLAFAXINE HCL 75 MG TABLET PO SCH (10:00)
--- NOTE | 2020-05-02 10:25 | ER Document Report ---
Doctor's Note Notes: 05/02/20 10:25 I reviewed the patient chart. I was not given report on this patient. Patient's lab work does not show any acute abnormalities awaiting psychiatric evaluation for suicidal ideation 05/02/20 13:07 Spoke with Magno from the psychiatric team. Patient will follow-up outpatient at [facility] for detox for pain medications. I spoke with the patient. He answers questions appropriately. He denies suicidal or homicidal ideation at this time.
--- NOTE | 2020-05-02 12:57 | PSYCHOLOGICAL NOTE ---
Psych Note - Psych Note Date seen by psych provider: 05/02/20 Time seen by psych provider: 10:55 Psych Note: Reason for Consult: IVC Patient arrived to [facility] ED via [facility] under 24-hour petition for evaluation. Petition was taken out by mobile crisis responder for concerns at the patient stated he wanted to . It continues report that the patient had a plastic bag in "tried to put it over his head." Affidavit reports that the patient has attempted suicide previously by cutting his wrist which he had been committed for and is on several different medications. Patient discloses he was feeling very depressed last night so called his Adult end worker, Kiya Guzman. He disclosed that she called mobile crisis. He confirms he had thought about putting a bag on his head however denies ever putting it on his head. He is unsure what stopped him but states that before doing anything he picked up the phone and asked for help. Patient confirms he is not had any difficulties with thoughts of harming himself since arriving to [facility]. He discloses that he has been trying to get into assisted living; "I know that it would be 100% better if I could just get in." Patient reports he is taking all of his prescribed medications to include his psychiatric medications. Patient is alert and orientated to person, place, time and circumstance. Mood is euthymic with congruent affect. Patient reports passive suicidal ideation i.e. no plans means or intent. Patient demonstrated positive coping by reaching out for assistance before harming self. Delusions are absent behaviors congruent with an intact reality based presentation i.e. organized and linear thought process. Eye contact is well maintained. Conversational speech is within normal rate, tone and prosody. Intellectual abilities appear to be within the average range. Attention and concentration are good. Insight, judgment, impulse control are fair. Chart review indicates the patient is prescribed Oxycontin 30mg twice daily Ambien 10mg at bedtime Effexor 75mg daily Lorazepam 1mg three times a day as needed visteral 50mg daily Divalproex 250mg twice daily Lisinppril 20mg daily Atorvastatin 40mg at bedtime Clinical Impression: Passive suicidal ideation ie no plan means or intent Polysubstance Dependence Opioid Induced Depression Drug seeking behaviors Unspecified Personality disorder Impression/Plan:Patient is recommended for rescind of IVC and is cleared from acute psychiatric services; paperwork is signed and placed on patient's chart. Patient denies current suicidal ideation. There is continued concern the patient is misusing his pain medications and is currently negative on toxicology screening for opiates. Patient states he does still have his pain medications at home; however, it is unknown if this is accurate information. Patient is unwilling to adjust his pain medications however after discussing the situation with both his APS worker and clinician he is willing to possibly go to a [facility] for detox. All information has been provided to both his APS worker and the patient. Dr. Morales was consulted on the care and management of this patient my: Attending physicians in agreement with recommendations and disposition.
[2020-05-02 13:19] VITALS: BP 96/66
[2020-05-02] MEDS ORDERED: ATORVASTATIN CALCIUM 40 MG TABLET PO SCH (18:00)
== END 2020-05-02 13:34 | disposition home or self-care (01) ==
LOC: ER 23:13
DX: R45.851 Suicidal ideations (principal); N39.0 Urinary tract infection, site not specified; F32.9 Major depressive disorder, single episode, unspecified; Z88.8 Allergy status to other drugs, medicaments and biological substances; I10 Essential (primary) hypertension; E11.9 Type 2 diabetes mellitus without complications; F17.210 Nicotine dependence, cigarettes, uncomplicated
CPT/HCPCS: 93005; 99285; 36415; 80307 ×4; 85025; 80053; 81001; 93010; A9270 ×5; J8499